=== PATIENT | male | born 1995 | race Caucasian/White ===

== ENCOUNTER 2022-10-27 09:49 | Outpatient (CLI) | payer OTHER, SELFPAY ==
--- NOTE | 2022-10-27 10:19 | XR_ITS ---
WS: [id number] Lumbar spine, 3 views, 10/27/2022 Clinical Data: BACK AND KNEE PAIN Comparison: None. Findings: No compression fractures or subluxation is seen. No disc space narrowing is seen. The transverse proc esses and SI joints are normal. XR/XR lumbar spine 2-3V* [id number] Impression: Negative lumbar spine.
--- NOTE | 2022-10-27 10:21 | XR_ITS ---
WS: [id number] Left knee, AP and lateral views, 10/27/2022 Clinical Data: BACK AND KNEE PAIN Comparison: None. Findings: No fractures or dislocations are seen. The joint spaces are normal. The patella is intact. The soft t issues are unremarkable. There is incidental sclerosis of the cortex in the medial proximal diaphysis of the left tibia. XR/XR knee LT 1-2V 11404 Impression: Negative left knee. Kellgren-Yuri Classification: grade 0 (none): definite absence of x-ray jina nges of osteoarthritis
== END 2022-10-27 09:50 | disposition home or self-care (01) ==
PROVIDERS: Visit Provider Dermatology
DX: Z02.71 Encounter for disability determination (principal)
CPT/HCPCS: 72100; 73560

== ENCOUNTER → 2023-01-13 09:00 | Outpatient (BNVA) | payer BC, MEDICAID, SELFPAY | PROVIDERS: Visit Provider Family Medicine Adult Medicine | DX: F32.A Depression, unspecified (principal); E05.00 Thyrotoxicosis with diffuse goiter without thyrotoxic crisis or storm; F31.9 Bipolar disorder, unspecified; G89.29 Other chronic pain; F20.0 Paranoid schizophrenia; F12.20 Cannabis dependence, uncomplicated; R44.0 Auditory hallucinations; R44.3 Hallucinations, unspecified; N39.41 Urge incontinence; F41.9 Anxiety disorder, unspecified; J45.909 Unspecified asthma, uncomplicated | CPT/HCPCS: 80053; 84443; 85025 ==

== ENCOUNTER → 2023-02-21 09:03 | Outpatient (BNVA) | payer BC, MEDICAID, SELFPAY | PROVIDERS: Visit Provider Family Medicine Adult Medicine | DX: E03.9 Hypothyroidism, unspecified (principal); R74.8 Abnormal levels of other serum enzymes; N17.9 Acute kidney failure, unspecified; F20.0 Paranoid schizophrenia; F31.9 Bipolar disorder, unspecified; F32.A Depression, unspecified; R60.0 Localized edema | CPT/HCPCS: 80053; 84443 ==

== ENCOUNTER → 2023-04-11 08:40 | Outpatient (BNVA) | payer BC, MEDICAID, SELFPAY | PROVIDERS: Visit Provider Family Medicine Adult Medicine | DX: E03.9 Hypothyroidism, unspecified (principal); N17.9 Acute kidney failure, unspecified; R74.8 Abnormal levels of other serum enzymes; F41.9 Anxiety disorder, unspecified; F32.A Depression, unspecified; K92.0 Hematemesis | CPT/HCPCS: 80053; 84443 ==

== ENCOUNTER 2023-06-16 21:34 | Emergency (ER) | payer BC, MEDICAID, SELFPAY ==
[2023-06-16 21:49] VITALS: BP 133/80; PULSE 78; RESP 16; TEMP 36.7; O2SAT 98
[2023-06-17] MEDS: tetanus-dipt-pertussis 0.5 mL SDV IM (00:14)
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
[2023-06-17] MEDS: lidocaine-prilocaine cream 5 gm 1 APPLIC TOPICAL (00:51)
[2023-06-17 00:53] VITALS: PULSE 77; RESP 14; O2SAT 98
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
[2023-06-17 02:21] VITALS: PULSE 78; RESP 16; O2SAT 99
== END 2023-06-17 02:27 | disposition home or self-care (01) ==
PROVIDERS: Emergency Provider Emergency Medicine; PCP Family Medicine Adult Medicine
DX: S06.0XAA Concussion with loss of consciousness status unknown, initial encounter (principal); S61.412A Laceration without foreign body of left hand, initial encounter; Z72.0 Tobacco use; Y04.2XXA Assault by strike against or bumped into by another person, initial encounter; Z23 Encounter for immunization
CPT/HCPCS: 12001; 70450; 73030; 90471; 90715; 99284

== ENCOUNTER → 2023-07-12 13:17 | Outpatient (BNVA) | payer BC, MEDICAID, SELFPAY | PROVIDERS: PCP Family Medicine Adult Medicine; Visit Provider Family Medicine Adult Medicine | DX: E03.9 Hypothyroidism, unspecified (principal); Z83.79 Family history of other diseases of the digestive system; B34.9 Viral infection, unspecified; F31.9 Bipolar disorder, unspecified; F41.9 Anxiety disorder, unspecified | CPT/HCPCS: 80048; 84443 ==

== ENCOUNTER 2023-08-16 07:41 | Day surgery (SDC) | payer BC, MEDICAID, SELFPAY ==
[2023-08-16 07:54] VITALS: BP 144/78; PULSE 70; RESP 18; TEMP 36.3; O2SAT 98; BMI 40.1
[2023-08-16] MEDS: sodium chloride 0.9% 1,000 ML 30 ML IV (08:08)
--- NOTE | 2023-08-16 08:11 | ANES.PREANE2 ---
Pre-Anesthetic Assessment Height/Weight: Height 1.68 m Weight 112.945 kg Temp Pulse Resp BP Pulse Ox O2 Del Method 97.4 F L 70 18 144/78 98 Room Air 08/16/23 07:54 08/16/23 07:54 08/16/23 07:54 08/16/23 07:54 08/16/23 07:54 08/16/23 07:54 Preop Diagnosis: diarrhea Operation Date: 08/16/23 08:30 Proposed Procedures p [id number] egd [id number] colon R11.2, R19.7 K92.1,K92.0, Z83.79,(Not Applicable) - Ramón Sutton DO s Colonoscopy(Not Applicable) - Ramón Sutton DO Was Beta Donato taken within 24 hours: N/A Was Clonidine taken within 24 hours: N/A Last intake: Intake Last Liquid Date 08/15/23 Last Liquid Time 23:00 Last Solid Date 08/14/23 Last Solid Time 23:55 Last Intake: 22:00 Social Tobacco and No alcohol Exam alert, oriented x 3, clear to auscultation bilaterally and regular rate & rhythm Airway Submandibular: within normal limits Cervical ROM: within normal limits Dentition: chipped Comments: Comments: poor dentition History/ROS No significant history except as noted Pulmonary Asthma CV/HEM None reported Chronic Renal Insufficiency Hepatic None reported GI None reported Metabolic Thyroid Disease [place] [facility] [place] None reported Neuropsych Depression Anesthetic Plan ASA status: 2 Anesthesia: MAC Risk of > 500 ml blood loss (7ml/kg in children): Yes, adequate IV access and fluids planned Medications/Allergies Home Medications Medication Instructions Recorded Confirmed Last Taken Type levothyroxine 300 mcg tablet 300 mcg PO DAILY low thyroid #90 04/12/23 08/14/23 08/15/23 Rx tabs docusate sodium 100 mg capsule 100 mg PO DAILY PRN Constipation 08/14/23 08/14/23 Unknown History (Dulcolax Stool Softener (docusate)) Allergies Allergy/AdvReac Type Severity Reaction Status Date / Time No Known Allergies Allergy Unverified 08/14/23 08:52 Current Medications Generic Name Dose Route Start Last Admin Trade Name Freq PRN Reason Stop Dose Admin Sodium Chloride 1,000 mls @ 30 mls/hr 08/16/23 07:45 08/16/23 08:08 Sodium Chloride 0.9% IV 08/17/23 07:44 30 mls/hr .Q24H ODIN Administration PFSH Anesthesia Medical History Viral syndrome FH: Crohn's disease TMJ (temporomandibular joint syndrome) Bilateral lower extremity edema Hypothyroidism Urge incontinence of urine Cannabis dependence Depression Anxiety Asthma Chronic pain bilateral knees, lateral SIJ's and low back pain Bipolar 1 disorder Paranoid schizophrenia Has a hallucinations visual and hearing voices Hallucination Family History Father No problems noted. Mother Lupus Acute Crohn's disease Acute pancreatitis Cancer Social History Smoking and tobacco/nicotine status: current some day tobacco/nicotine user Quit status (tobacco/nicotine): has tried quititng Second hand smoke exposure: No Alcohol intake: current Alcohol intake frequency: few times a month Alcohol type: other Substance/Drug Use: current Substance/Drug use frequency: daily Adopted: No Caregiver/support person: No Lives independently: Yes Household members: other Housing: Apartment Data Anesthesia Cardiac Studies: No Data to Display
--- NOTE | 2023-08-16 08:18 | PM.HP ---
Providers/Chief Complaint Primary Care Provider: Jozef Brown MD Chief Complaint: R11.2 History of Present Illness Shay Rubi is a 27 year old male Review of Systems General: Reports: 10 or more systems reviewed and unremarkable except in HPI and below Medications/Allergies Home Medications Medication Instructions Recorded Confirmed Last Taken Type levothyroxine 300 mcg tablet 300 mcg PO DAILY low thyroid #90 04/12/23 08/14/23 08/15/23 Rx tabs docusate sodium 100 mg capsule 100 mg PO DAILY PRN Constipation 08/14/23 08/14/23 Unknown History (Dulcolax Stool Softener (docusate)) Allergies Allergy/AdvReac Type Severity Reaction Status Date / Time No Known Allergies Allergy Unverified 08/14/23 08:52 PFSH Acute PFSH: Medical History Viral syndrome FH: Crohn's disease TMJ (temporomandibular joint syndrome) Bilateral lower extremity edema Hypothyroidism Urge incontinence of urine Cannabis dependence Depression Anxiety Asthma Chronic pain bilateral knees, lateral SIJ's and low back pain Bipolar 1 disorder Paranoid schizophrenia Has a hallucinations visual and hearing voices Hallucination Family History Father No problems noted. Mother Lupus Acute Crohn's disease Acute pancreatitis Cancer Social History Smoking and tobacco/nicotine status: current some day tobacco/nicotine user Quit status (tobacco/nicotine): has tried quititng Second hand smoke exposure: No Alcohol intake: current Alcohol intake frequency: few times a month Alcohol type: other Substance/Drug Use: current Substance/Drug use frequency: daily Adopted: No Caregiver/support person: No Lives independently: Yes Household members: other Housing: Apartment Vitals/I&O/Wt Last Vital Signs Temp 97.4 F L 08/16/23 07:54 Pulse 70 08/16/23 07:54 Resp 18 08/16/23 07:54 BP 144/78 08/16/23 07:54 Pulse Ox 98 08/16/23 07:54 O2 Del Method Room Air 08/16/23 07:54 Weight last 48 hrs Weight 249 lb A&P Assessment and plan (1) FH: Crohn's disease: (2) Nausea and vomiting: (3) Diarrhea: (4) Hematochezia: (5) GERD (gastroesophageal reflux disease): Plan EGD and colonoscopy Attestations Medical Necessity Statement*: Home Coding Level of Care Code Acute Code for Chg Fwd Diagnoses FH: Crohn's disease Z83.79 Nausea and vomiting R11.2 Diarrhea R19.7 Hematochezia K92.1 GERD (gastroesophageal reflux disease) K21.9
[2023-08-16 08:52] VITALS: BP 104/53; PULSE 59; RESP 18; TEMP 36.9; O2SAT 95
[2023-08-16 09:00] VITALS: BP 112/67; PULSE 59; RESP 18; O2SAT 96
--- NOTE | 2023-08-16 09:15 | ANE.PACU2 ---
Inpatient post-anesthesia follow up: Airway intact: Yes Vital signs: Temperature 98.4 F Pulse Rate 59 Respiratory Rate 18 Blood Pressure 112/67 Pulse Oximetry 96 Oxygen Delivery Me thod Room Air Oxygen Flow Rate Fraction of Inspir ed Oxygen Hydration adequate: Yes Nausea and vomiting: No Pain level: 1 Mental status: Baseline
[2023-08-16 11:19] LABS: C.Diff PCR (Lab) NEGATIVE (Negative)
== END 2023-08-16 09:19 | disposition home or self-care (01) ==
PROVIDERS: PCP Family Medicine Adult Medicine; Visit Provider Surgery
PROC: 0DJ08ZZ Inspection of Upper Intestinal Tract, Via Natural or Artificial Opening Endoscopic (ICD-10-PCS; CPT 43235; principal; 2023-08-16 08:30)
PROC: 0DJD8ZZ Inspection of Lower Intestinal Tract, Via Natural or Artificial Opening Endoscopic (ICD-10-PCS; CPT 45378; 2023-08-16 08:30)
DX: K92.1 Melena (principal); K92.0 Hematemesis; Z83.79 Family history of other diseases of the digestive system; R19.7 Diarrhea, unspecified; D12.5 Benign neoplasm of sigmoid colon; K29.80 Duodenitis without bleeding; J45.909 Unspecified asthma, uncomplicated; E66.9 Obesity, unspecified; Z68.41 Body mass index [BMI] 40.0-44.9, adult; E03.9 Hypothyroidism, unspecified; F17.200 Nicotine dependence, unspecified, uncomplicated
CPT/HCPCS: 43239; 45380; 45385; 82274; 83630; 87045; 87177; 87209; 87427; 87449; 87493; 88305; 88342; J2704; J3010; J3490; J7030

== ENCOUNTER 2023-08-31 12:29 | Emergency (ER) | payer BC, MEDICAID, SELFPAY ==
[2023-08-31 12:33] VITALS: BP 118/78; PULSE 73; RESP 16; TEMP 36.4; O2SAT 98; BMI 41.9
--- NOTE | 2023-08-31 12:33 | XR_ITS ---
WS: [id number] Portable AP upright chest, 08/31/2023 Clinical Data: cough Comparison: None. Findings: No nodules, masses or effusions are seen. The heart is normal. The pulmonary vascularity is not increased. No pneumonia or pneumothorax is seen. Impression: Negative chest.
--- NOTE | 2023-08-31 12:57 | ED_ITS ---
HPI - URI/Sore Throat General: Chief Complaint: Upper Respiratory Infection Stated Complaint: sob, cough, headache, mouth pain Time Seen by Provider: 08/31/23 12:56 History of Present Illness: Patient presents today with a 1 day episode of shortness of breath feeling of malaise. Patient appears nontoxic. Patient appears unwell. Patient appears in no pain. Respirations are even. Patient is able to speak in full sentences. Review of Systems General: Reports: 10 or more systems reviewed and unremarkable except in HPI and below Const: Reports: malaise Resp: Reports: dyspnea PFSH ED PFSH: Medical History Viral syndrome FH: Crohn's disease TMJ (temporomandibular joint syndrome) Bilateral lower extremity edema Hypothyroidism Urge incontinence of urine Cannabis dependence Depression Anxiety Asthma Chronic pain bilateral knees, lateral SIJ's and low back pain Bipolar 1 disorder Paranoid schizophrenia Has a hallucinations visual and hearing voices Hallucination Family History Father No problems noted. Mother Lupus Acute Crohn's disease Acute pancreatitis Cancer Social History Smoking and tobacco/nicotine status: current some day tobacco/nicotine user Quit status (tobacco/nicotine): has tried quititng Second hand smoke exposure: No Alcohol intake: current Alcohol intake frequency: few times a month Alcohol type: other Substance/Drug Use: current Substance/Drug use frequency: daily Adopted: No Caregiver/support person: No Lives independently: Yes Household members: other Housing: Apartment Physical Exam Const: COMMON NORMALS: alert HENMT: COMMON NORMALS: normocephalic HEAD & SCALP: normocephalic Resp: COMMON NORMALS: normal respiratory effort AUSCULTATION: wheezes Cardio: COMMON NORMALS: regular rate RATE: regular rate Back/Pelvis: COMMON NORMALS: thoracic and lumbar spine normal to inspection Extremity: COMMON NORMALS: full ROM Neuro: SENSORIUM/ORIENTATION: Yes alert Skin: COMMON NORMALS: turgor normal GENERAL SKIN EXAM: turgor normal Course Vital Signs: Vital signs: Vital Signs Temperature 97.5 F L 08/31/23 12:33 Pulse Rate 76 08/31/23 13:25 Respiratory Rate 22 H 08/31/23 13:25 Blood Pressure 118/78 08/31/23 12:33 Pulse Oximetry 96 08/31/23 13:25 Oxygen Delivery Me thod Room Air 08/31/23 13:25 MDM - URI/Sore Throat Medical Decision Making 27-year-old male patient comes in today for complaints of cough and shortness of breath. Patient appears nontoxic. Lungs have wheezing throughout lung salgado. Skin is warm and dry. No edema is. Abdomen soft and nontender. Differential diagnosis includes but not limited to pneumonia, bronchitis, asthma, viral syndrome. Patient was negative for flu and COVID. Will treat for bronchitis with asthma component. Patient was written a prescription for doxycycline and prednisone. Patient was also given a prescription for albuterol. Recommend follow-up with primary care in 3 to 5 days for recheck. Encourage smoking cessation. Lab Data Laboratory Results Influenza Type A Ag negative (Negative) 08/31/23 12:48 Influenza Type B Ag negative (Negative) 08/31/23 12:48 SARS-CoV-2 Ag (Rapid) negative (Negative) 08/31/23 12:48 All radiology interpretation(s) finalized by discharge Discharge Plan Discharge Patient Disposition: Home Clinical Impression: Acute bronchitis with asthma Condition: Stable Prescriptions: New doxycycline hyclate 100 mg tablet 100 mg PO BID 7 Days Qty: 14 0RF prednisone 20 mg tablet 20 mg PO DAILY 5 Days Qty: 5 0RF albuterol sulfate 90 mcg/actuation HFA aerosol inhaler 2 inh inhalation Q4H PRN (Reason: shortness of breath or wheezing) Qty: 8.5 0RF No Action levothyroxine 300 mcg tablet 300 mcg PO DAILY Qty: 90 5RF docusate sodium [Dulcolax Stool Softener (dss)] 100 mg capsule 100 mg PO DAILY PRN (Reason: Constipation) Rx Instructions: take as directed for colonoscopy prep pantoprazole 40 mg tablet,delayed release (DR/EC) 40 mg PO BID 42 Days Qty: 84 1RF Discharge Orders: Discharge ED (Routine); Ordered 08/31/23 Ordered By: Natanael Diaz Referrals: Jozef Brown MD [Primary Care Provider] - Discharge Diet: Usual diet Discharge Activity: Increase activity as tolerated Patient Instructions: Acute Bronchitis (ED) Activity Restrictions/Additional Instructions: Drink plenty of water and fluids. I recommend cessation of smoking and vaping as this may aggravate bronchitis and asthma symptoms. Take antibiotic and steroid as directed. Follow-up with primary care in 3 to 5 days for recheck. Return to ED for new concerns. Coding Level of Care Code ED Playground Attendant for Janina Nunez
[2023-08-31] MEDS: dexamethasone 10 mg/mL INJ IM (13:11)
[2023-08-31 13:17] LABS: Influenza A by IFA negative (Negative); Influenza B by IFA negative (Negative)
[2023-08-31 13:19] LABS: SARS Covid-2 Antigen negative (Negative)
[2023-08-31] MEDS: ipratropium-albuterol 3 mL Neb INHALATION (13:24)
[2023-08-31 13:25] VITALS: PULSE 76; RESP 22; O2SAT 96
[2023-08-31] MEDS: doxycycline 100 mg Tablet PO (13:39)
[2023-08-31 13:47] VITALS: BP 138/77; PULSE 65; O2SAT 97
== END 2023-08-31 13:48 | disposition home or self-care (01) ==
PROVIDERS: Emergency Medicine; Emergency Provider Nurse Practitioner Family; PCP Family Medicine Adult Medicine
DX: J45.909 Unspecified asthma, uncomplicated (principal); J20.9 Acute bronchitis, unspecified; Z11.52 Encounter for screening for COVID-19; Z72.0 Tobacco use
CPT/HCPCS: 71045; 87426; 87804; 94640; 96372; 99284; J1100

== ENCOUNTER 2023-09-08 08:06 | Outpatient (CLI) | payer BC, MEDICAID, SELFPAY ==
--- NOTE | 2023-09-08 08:30 | US_ITS ---
WS: [id number] RIGHT UPPER QUADRANT ULTRASOUND HISTORY: abdominal pain COMPARISON: None available. Liver: 21.2 cm in length. Moderate hepatomegaly. No mass. No bile duct dilatation. Portal Vein: Normal hepatopetal flow with monophasic waveform. Gallbladder: Normally distended with cholelithiasis. Small stones in the dependent gallbladder. CBD: 0.3 cm Pancreas: Poorly visualized. Right kidney: 8.8 cm in length. Mild atrophy of the RIGHT kidney. Aorta and IVC: Unremarkable abdominal aorta and IVC. No ascites. IMPRESSION: 1. Lithiasis without acute cholecystitis. 2. Moderate hepatomegaly. 3. Mild atrophy RIGHT kidney. No obstruction.
== END 2023-09-08 08:07 | disposition home or self-care (01) ==
LOC: RAD 08:06
PROVIDERS: PCP Family Medicine Adult Medicine; Visit Provider Surgery
DX: R10.9 Unspecified abdominal pain (principal); K80.20 Calculus of gallbladder without cholecystitis without obstruction; R16.0 Hepatomegaly, not elsewhere classified; N26.1 Atrophy of kidney (terminal)
CPT/HCPCS: 76705

== ENCOUNTER 2023-10-27 02:40 | Emergency (ER) | payer BC, MEDICAID, SELFPAY ==
[2023-10-27 02:42] VITALS: BP 142/92; PULSE 74; RESP 18; TEMP 36.4; O2SAT 95; BMI 37.9
--- NOTE | 2023-10-27 02:47 | W.ED.BACK ---
HPI - Back Pain/Injury General: Chief Complaint: Back Pain/Injury Stated Complaint: Back Pain Time Seen by Provider: 10/27/23 02:42 History of Present Illness: Presents to the ER with complaints of right-sided low back pain that began in mid July. Patient says also felt a lump in this area that is tender to palpate. He noticed a lump within the last couple weeks. Patient took some Tylenol before he came here tonight. Patient arrived by EMS. Patient is in no acute distress and is not toxic in appearance. Patient has no history of chronic back problems per him. Patient denies any nausea vomiting diarrhea constipation fevers chills urinary symptoms Review of Systems General: Reports: 10 or more systems reviewed and unremarkable except in HPI and below PFSH ED PFSH: Medical History FH: Crohn's disease TMJ (temporomandibular joint syndrome) Bilateral lower extremity edema Hypothyroidism Urge incontinence of urine Cannabis dependence Depression Anxiety Asthma Chronic pain bilateral knees, lateral SIJ's and low back pain Bipolar 1 disorder Paranoid schizophrenia Has a hallucinations visual and hearing voices Hallucination Family History Father No problems noted. Mother Lupus Acute Crohn's disease Acute pancreatitis Cancer Social History Smoking and tobacco/nicotine status: current some day tobacco/nicotine user Quit status (tobacco/nicotine): has tried quititng Second hand smoke exposure: No Alcohol intake: current Alcohol intake frequency: few times a month Alcohol type: other Substance/Drug Use: current Substance/Drug use frequency: daily Adopted: No Caregiver/support person: No Lives independently: Yes Household members: other Housing: Apartment Physical Exam Const: COMMON NORMALS: no acute distress, average body habitus, patient oriented x3, no limitations, healthy appearing, alert and well nourished HENMT: COMMON NORMALS: normocephalic, atraumatic, hearing grossly normal bilaterally, external ears normal, Normal external nose present and moist oral mucous membranes HEAD & SCALP: normocephalic and atraumatic NOSE: Normal external nose present EXTERNAL EAR: Yes external ears normal Neck/C-Spine: COMMON NORMALS: no JVD Chest: COMMONS NORMALS: normal inspection of the chest and normal palpation of entire chest wall Resp: COMMON NORMALS: normal respiratory effort, No retractions, No use of accessory muscles and clear to auscultation bilaterally AUSCULTATION: clear to auscultation bilaterally Cardio: COMMON NORMALS: no JVD, regular rate, regular rhythm, S1 normal heart sound present, S2 normal heart sound present, No gallops present (Cardio), No clicks present (Cardio), No murmurs present (Cardio) and No rub (Cardio) RATE: regular rate RHYTHM: regular rhythm HEART SOUNDS: S1 normal heart sound present and S2 normal heart sound present GI: COMMON NORMALS: Normal to inspection, nondistended, normoactive bowel sounds present, Soft to palpation, non-tender, No hepatosplenomegaly present and no masses PALPATION: Yes Soft to palpation and Yes No hepatosplenomegaly present Back/Pelvis: OTHER: Tender to palpate over right paraspinal musculature, nontender to palpate over spinous processes. No obvious crepitus deformity Neuro: COMMON NORMALS: patient oriented x3 SENSORIUM/ORIENTATION: Yes alert Course Vital Signs: Vital signs: Vital Signs Temperature 97.6 F 10/27/23 02:42 Pulse Rate 74 10/27/23 02:42 Respiratory Rate 18 10/27/23 02:42 Blood Pressure 142/92 10/27/23 02:42 Pulse Oximetry 95 10/27/23 02:42 Oxygen Delivery Me thod Room Air 10/27/23 02:42 MDM - Back Pain/Injury Medical Decision Making Patient was given an IM shot of Toradol 60 mg Norflex 60 mg and will be referred back to his family physician for further evaluation and treatment. Differential Diagnosis Unlikely lumbar radiculopathy, sciatica, strain of lumbar region, renal colic, pyelonephritis, thoracic back pain, AAA or discitis Medical Records I reviewed the patient's medical records. Labs I reviewed the patient's lab results. No radiology studies performed this visit Discharge Plan Discharge Patient Disposition: Home Clinical Impression: Low back pain Qualifiers: Chronicity: chronic Back pain laterality: right Sciatica presence: without sciatica Qualified Code(s): M54.50 - Low back pain, unspecified Condition: Stable Prescriptions: No Action levothyroxine 300 mcg tablet 300 mcg PO DAILY Qty: 90 5RF docusate sodium [Dulcolax Stool Softener (dss)] 100 mg capsule 100 mg PO DAILY PRN (Reason: Constipation) Rx Instructions: take as directed for colonoscopy prep pantoprazole 40 mg tablet,delayed release (DR/EC) 40 mg PO BID 42 Days Qty: 84 1RF albuterol sulfate 90 mcg/actuation HFA aerosol inhaler 2 inh inhalation Q4H PRN (Reason: shortness of breath or wheezing) Qty: 8.5 0RF Discharge Orders: Discharge ED (Routine); Ordered 10/27/23 Ordered By: Jake Matt Referrals: Jozef Brown MD [Primary Care Provider] - 1 week Patient Instructions: Back Pain (ED) Activity Restrictions/Additional Instructions: You are given a pain medicine muscle relaxer here in the ER. Please follow-up with your family practice physician within the next 7 to 10 days for reevaluation of your chronic back pain. The lump you feel in your right side may be a localized muscle spasm or may be a lipoma. Your family practice physician can help differentiate these 2. Coding Level of Care Code ED Artisan Plasterer for Janina Nunez
[2023-10-27] MEDS: orphenadrine 30 mg/mL Inj 2 mL 60 MG IM (03:00)
[2023-10-27] MEDS: ketorolac 60 mg/2 mL INJ IM (03:00)
[2023-10-27 03:06] VITALS: RESP 14; O2SAT 99
== END 2023-10-27 03:15 | disposition home or self-care (01) ==
PROVIDERS: Emergency Provider Emergency Medicine; PCP Family Medicine Adult Medicine
DX: M54.50 Low back pain, unspecified (principal); Z72.0 Tobacco use
CPT/HCPCS: 96372; 99284; J1885; J2360

== ENCOUNTER → 2023-11-07 11:59 | Outpatient (BNVA) | payer BC, MEDICAID, SELFPAY | PROVIDERS: PCP Family Medicine Adult Medicine; Visit Provider Family Medicine Adult Medicine | DX: E03.9 Hypothyroidism, unspecified (principal); R22.2 Localized swelling, mass and lump, trunk | CPT/HCPCS: 84443 ==

== ENCOUNTER 2023-11-16 09:38 | Emergency (ER) | payer BC, MEDICAID, SELFPAY ==
[2023-11-16 10:02] VITALS: BP 109/75; PULSE 61; RESP 17; TEMP 36.6; O2SAT 95; BMI 41.9
--- NOTE | 2023-11-16 10:08 | XR_ITS ---
WS: [id number] Portable AP upright chest, 11/16/2023 Clinical Data: cough Comparison: Portable chest, 08/31/2023 Findings: No nodules, masses or effusions are seen. The heart is normal. The pulmonary vascularity is not increased. No pneumonia or pneumothorax is seen. XR/XR chest 1V portable [id number] Impression: Negative chest.
== END 2023-11-16 11:38 | disposition left against medical advice (07) ==
PROVIDERS: Emergency Provider Family Medicine; PCP Family Medicine Adult Medicine
DX: Z53.21 Procedure and treatment not carried out due to patient leaving prior to being seen by health care provider (principal)
CPT/HCPCS: 71045

== ENCOUNTER 2023-11-21 04:19 | Emergency (ER) | payer BC, MEDICAID, SELFPAY ==
[2023-11-21 04:22] VITALS: BP 142/83; PULSE 51; RESP 20; TEMP 36.9; O2SAT 96; BMI 48.4
--- NOTE | 2023-11-21 04:23 | ED_ITS ---
HPI - Nausea/Vomiting/Diarrhea 2 General: Chief complaint: Nausea/Vomiting/Diarrhea Stated complaint: VOMITING Time Seen by Provider: 11/21/23 04:19 Source: patient and EMS Mode of arrival: EMS Limitations: no limitations History of Present Illness: 28-year-old male who states that he has been having nausea vomiting along with diarrhea over the last 24 hours. He states he had multiple episodes not able to tolerate anything p.o. He has had a long history of GI issues does follow with Dr. Sutton. He denies any worsening improving factors has had some abdominal cramping. Associated nausea: Yes Associated symtoms: Reports nausea; Denies chest pain, dysuria or headache(s) Review of Systems 2 Const: Denies: fever(s), chills, body aches or change in appetite ENMT: Denies: throat pain or dental pain Card: Denies: chest pain Resp: Denies: dyspnea GI: Reports: nausea and vomiting; Denies: abdominal pain or diarrhea : Denies: dysuria Musc: Denies: neck pain or back pain Skin/Breast: Denies: rash Neuro: Denies: headache(s) PFSH ED 2 PFSH: Medical History Subcutaneous mass of back FH: Crohn's disease TMJ (temporomandibular joint syndrome) Bilateral lower extremity edema Hypothyroidism Urge incontinence of urine Cannabis dependence Depression Anxiety Asthma Chronic pain bilateral knees, lateral SIJ's and low back pain Bipolar 1 disorder Paranoid schizophrenia Has a hallucinations visual and hearing voices Hallucination Family History Father No problems noted. Mother Lupus Acute Crohn's disease Acute pancreatitis Cancer Social History Smoking and tobacco/nicotine status: current some day tobacco/nicotine user Quit status (tobacco/nicotine): has tried quititng Second hand smoke exposure: No Alcohol intake: current Alcohol intake frequency: few times a month Alcohol type: other Substance/Drug Use: current Substance/Drug use frequency: daily Adopted: No Caregiver/support person: No Lives independently: Yes Household members: other Housing: Apartment Physical Exam 2 Const: COMMON NORMALS: no acute distress, patient oriented x3 and healthy appearing HENMT: COMMON NORMALS: normocephalic and atraumatic HEAD & SCALP: n ormocephalic and atraumatic Eye: COMMON NORMALS: negative for conjunctivae normal CONJUNCTIVA: No conjunctivae normal Neck/C-Spine: COMMON NORMALS: full ROM and supple Chest: COMMONS NORMALS: normal inspection of the chest Resp: COMMON NORMALS: normal respiratory effort, No retractions, No use of accessory muscles and clear to auscultation bilaterally AUSCULTATION: clear to auscultation bilaterally Cardio: COMMON NORMALS: regular rate, regular rhythm and No murmurs present (Cardio) RATE: regular rate RHYTHM: regular rhythm GI: COMMON NORMALS: Normal to inspection, nondistended, normoactive bowel sounds present, Soft to palpation, non-tender and no masses PALPATION: Yes Soft to palpation Extremity: COMMON NORMALS: normal to inspection and full ROM Neuro: COMMON NORMALS: patient oriented x3, moves all extremities and no focal motor deficits Psych: COMMON NORMALS: mental status grossly normal, Normal thought process present and cooperative THOUGHT PROCESS: Normal thought process present Skin: COMMON NORMALS: no rashes or lesions noted and no wounds GENERAL SKIN EXAM: no rashes or lesions noted Course 2 Vital Signs: Vital signs: Vital Signs Temperature 98.4 F 11/21/23 04:22 Pulse Rate 51 L 11/21/23 06:00 Respiratory Rate 20 H 11/21/23 04:22 Blood Pressure 130/74 11/21/23 06:00 Pulse Oximetry 96 11/21/23 06:00 Oxygen Delivery Me thod Room Air 11/21/23 05:30 MDM - Nausea/Vomiting/Diarrhea Medical Decision Making Patient presents with nausea and vomiting is likely viral gastroenteritis he feels much improved after meds and fluids. Blood work here is normal exam is benign no signs of acute surgical abdomen Medical Records I reviewed the patient's medical records. Lab Data I reviewed the patient's lab results. 11/21/23 04:41 11/21/23 04:41 Laboratory Results WBC 6.68 10^3/uL (3.29-11.43) 11/21/23 04:41 RBC 5.28 10^6/uL (3.85-5.65) 11/21/23 04:41 Hgb 15.90 g/dL (11.27-16.99) 11/21/23 04:41 Hct 47.6 % (37-53) 11/21/23 04:41 MCV 90.2 fl (82-101) 11/21/23 04:41 MCH 30.1 pg (27-33) 11/21/23 04:41 MCHC 33.4 g/dL (30-55) 11/21/23 04:41 RDW 12.1 % (12.1-15.1) 11/21/23 04:41 Plt Count 224 10^3/cmm (157-399) 11/21/23 04:41 MPV 10.8 fL (7.4-10.4) H 11/21/23 04:41 Neut % (Auto) 74.8 % 11/21/23 04:41 Lymph % (Auto) 15.9 % 11/21/23 04:41 [place] % (Auto) 7.5 % 11/21/23 04:41 Eos % (Auto) 0.7 % 11/21/23 04:41 Baso % (Auto) 0.4 % 11/21/23 04:41 Neut # (Auto) 4.99 10^3/uL (1.8-7.7) 11/21/23 04:41 Lymph # (Auto) 1.1 10^3/uL (0.8-4.8) 11/21/23 04:41 [place] # (Auto) 0.5 10^3/uL (0.2-0.9) 11/21/23 04:41 Eos # (Auto) 0.1 10^3/uL (0.0-0.8) 11/21/23 04:41 Baso # (Auto) 0.0 10^3/uL (0.0-0.1) 11/21/23 04:41 Nucleated RBC % (auto) 0 % 11/21/23 04:41 Nucleated RBCs # 0.0 /100WBC 11/21/23 04:41 Sodium 138 mmol/L (136-145) 11/21/23 04:41 Potassium 3.6 mmol/L (3.5-5.1) 11/21/23 04:41 Chloride 102 mmol/L (98-107) 11/21/23 04:41 Carbon Dioxide 24 mmol/L (22-29) 11/21/23 04:41 Anion Gap 15.6 (5-19) 11/21/23 04:41 BUN 10 mg/dL (6-20) 11/21/23 04:41 Creatinine 0.8 mg/dL (0.7-1.2) 11/21/23 04:41 GFR Calculation 114.3 mL/min (90-130) 11/21/23 04:41 Glucose 100 mg/dL (65-115) 11/21/23 04:41 Calculated Osmolality 285 mOsm/kg (285-295) 11/21/23 04:41 Calcium 8.5 mg/dL (8.5-10.5) 11/21/23 04:41 Total Bilirubin 0.8 mg/dL (0.15-1.2) 11/21/23 04:41 AST 17 U/L (0-40) 11/21/23 04:41 ALT 20 U/L (0-41) 11/21/23 04:41 Alkaline Phosphatase 58 U/L (40-130) 11/21/23 04:41 Total Protein 6.9 g/dL (6.6-8.7) 11/21/23 04:41 Albumin 4.1 g/dL (3.5-5.2) 11/21/23 04:41 Globulin 2.8 g/dL (1.3-4.6) 11/21/23 04:41 Lipase 15 U/L (13-60) 11/21/23 04:41 No radiology studies performed this visit Discharge Plan Discharge Patient Disposition: Home Clinical Impression: Vomiting Condition: Stable Prescriptions: New ondansetron 4 mg tablet,disintegrating 4 mg PO Q6H PRN (Reason: nausea and vomiting) Qty: 14 0RF No Action diclofenac sodium 75 mg tablet,delayed release (DR/EC) 75 mg PO Q12H PRN (Reason: pain) Qty: 30 1RF albuterol sulfate [Ventolin HFA] 90 mcg/actuation HFA aerosol inhaler 2 puff inhalation Q6H PRN (Reason: shortness of breath or wheezing) Qty: 8.5 0RF prednisone 20 mg tablet 20 mg PO BID 5 Days Qty: 10 0RF amoxicillin-pot clavulanate 875-125 mg tablet 1 tab PO BID 7 Days Qty: 14 0RF levothyroxine 300 mcg tablet 300 mcg PO DAILY Qty: 90 5RF docusate sodium [Dulcolax Stool Softener (dss)] 100 mg capsule 100 mg PO DAILY PRN (Reason: Constipation) Rx Instructions: take as directed for colonoscopy prep pantoprazole 40 mg tablet,delayed release (DR/EC) 40 mg PO BID 42 Days Qty: 84 1RF albuterol sulfate 90 mcg/actuation HFA aerosol inhaler 2 inh inhalation Q4H PRN (Reason: shortness of breath or wheezing) Qty: 8.5 0RF Discharge Orders: Discharge ED (Routine); Ordered 11/21/23 Ordered By: Fariha Fernandez Referrals: Jozef Brown MD [Primary Care Provider] - Discharge Diet: Advance as tolerated Discharge Activity: Resume usual activity Patient Instructions: Acute Nausea and Vomiting (ED) Coding Level of Care Code ED Reliability Engineer for Janina Nunez
[2023-11-21] MEDS: sodium chloride 0.9% 1,000 ML 999 ML IV (04:44)
[2023-11-21] MEDS: diphenhydrAMINE 50 mg/mL SDV 1mL IVP (04:45)
[2023-11-21 04:47] LABS: Basophils % 0.4 %; Eosinophils # 0.1 10^3/uL (0.0-0.8); Eosinophils % 0.7 %; Hematocrit 47.6 % (37-53); Lymphocytes # 1.1 10^3/uL (0.8-4.8); Lymphocytes % 15.9 %; Mean Corpuscular HGB Conc 33.4 g/dL (30-55); Mean Corpuscular Hemoglobin 30.1 pg (27-33); Mean Corpuscular Volume 90.2 fl (82-101); Mean Platelet Volume 10.8 fL (7.4-10.4); Monocytes # 0.5 10^3/uL (0.2-0.9); Monocytes % 7.5 %; Neutrophils # 4.99 10^3/uL (1.8-7.7); Neutrophils % 74.8 %; Nucleated Red Blood Cells % 0 %; Platelet Count 224 10^3/cmm (157-399); Red Blood Count 5.28 10^6/uL (3.85-5.65); Red Cell Distribution Width 12.1 % (12.1-15.1); White Blood Count 6.68 10^3/uL (3.29-11.43)
[2023-11-21] MEDS: metoclopramide 5 mg/mL SDV 2 mL 10 MG IVP (04:51)
[2023-11-21 05:00] VITALS: BP 123/61; PULSE 53; O2SAT 95
[2023-11-21 05:05] LABS: Alanine Aminotransferase 20 U/L (0-41); Albumin Level 4.1 g/dL (3.5-5.2); Alkaline Phosphatase 58 U/L (40-130); Anion Gap 15.6 (5-19); Aspartate Amino Transferase 17 U/L (0-40); Blood Urea Nitrogen 10 mg/dL (6-20); Calcium 8.5 mg/dL (8.5-10.5); Carbon Dioxide 24 mmol/L (22-29); Chloride 102 mmol/L (98-107); Creatinine Clr Calc Pharmacy 178.6622; Globulin 2.8 g/dL (1.3-4.6); Glomerular Filtration Rate 114.3 mL/min (90-130); Glucose 100 mg/dL (65-115); Lipase 15 U/L (13-60); Osmolality Calculated 285 mOsm/kg (285-295); Potassium 3.6 mmol/L (3.5-5.1); Sodium 138 mmol/L (136-145); Total Bilirubin 0.8 mg/dL (0.15-1.2); Total Protein 6.9 g/dL (6.6-8.7)
[2023-11-21 05:30] VITALS: BP 133/75; PULSE 44; O2SAT 96
[2023-11-21 06:00] VITALS: BP 130/74; PULSE 51; O2SAT 96
== END 2023-11-21 06:00 | disposition home or self-care (01) ==
PROVIDERS: Emergency Provider Emergency Medicine; PCP Family Medicine Adult Medicine
DX: R11.11 Vomiting without nausea (principal); Z72.0 Tobacco use
CPT/HCPCS: 80053; 83690; 85025; 96374; 96375; 99284; J1200; J2765; J7030

== ENCOUNTER 2023-12-12 07:15 | Day surgery (SDC) | payer BC, MEDICAID, SELFPAY ==
[2023-12-12] VITALS (15 sets, daily range): BP systolic 118–176; BP diastolic 66–120; PULSE 51–92; RESP 13–20; TEMP 36.1–37; O2SAT 90–100; BMI 38.7
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
[2023-12-12] MEDS: sodium chloride 0.9% 1,000 ML 30 ML IV (08:12)
--- NOTE | 2023-12-12 08:14 | W.PM.OPSUD ---
Surgery/Procedure H&P Update DATE OF PROCEDURE: December 12, 2023 DATE H&P PERFORMED: 11/24/23 H&P UPDATE INFORMATION: I have reviewed H&P completed within last 30 days, I have examined patient prior to procedure and No changes to prior documentation PLANNED PROCEDURE: Operation Date: 12/12/23 09:00 Proposed Procedures p Laparoscopic Cholecystectomy(Not Applicable) - Ramón Sutton DO s Excision of Subcutaneous Mass/Lesion/Cyst Upper Torso/He 01781, 17931, R22.2, K80.20(Not Applicable) - Ramón Sutton DO
[2023-12-12] MEDS: albuterol 2.5 mg/3 mL Neb INHALATION (08:30)
--- NOTE | 2023-12-12 08:59 | SUR.PREOP ---
TOLERATED BREATHING TREATMENT WELL.NO DYSPNEA AT THIS TIME.
[2023-12-12] MEDS: ceFAZolin 2,000 MG in sodium chloride 0.9% (plus) 50 ML 100 MG IV (09:31)
--- NOTE | 2023-12-12 11:02 | P.OP_ITS ---
Operative Report Date of procedure: December 12, 2023 Pre-op diagnosis: Symptomatic cholelithiasis Subcutaneous mass Post-op diagnosis: Symptomatic cholelithiasis Subfascial mass Procedure done: Laparoscopic cholecystectomy Excision of subfascial mass 6 cm x 4 cm x 2.5 cm Implants: None Specimens removed/disposition: Gallbladder Subfascial mass 6 cm x 4 cm x 2.5 cm Surgeon: Ramón Sutton DO Brief History: This is a very pleasant 28-year-old gentleman who presented my office with symptomatic cholelithiasis. Laparoscopic cholecystectomy was indicated. The risk and benefits were explai yokasta and documented. He also had a painful subcutaneous mass on his right lower back that he desired excised. The risks and benefits were explained and documented Procedure: Complications: None apparent Description of procedure: Patient was wheeled into the operative room and placed on the OR table in a supine position. Abdomen was inspected prepped and draped in usual sterile fashion. Time-out was performed and all present were in agreement. A 15 blade scalp was used to make a stab incision in the left upper quadrant and intra- abdominal insufflation was achieved using a Veress needle. After localizing the tissue incisions were made and a 5 millimeter trocar was placed into the umbilicus as well as 2 in the right upper quadrant. A 12 millimeter trocar was placed in the epigastrium. Gallbladder was grasped and elevated. The triangle of Calot was carefully dissected using blunt dissection and electrocautery until the triangle of Calot clearly identified. The cystic duct was clipped proximally and double clipped distally. The duct was then ligated proximally. The cystic artery was doubly clipped and ligated. The gallbladder was then removed from the liver bed using electrocautery. The gallbladder was removed from the abdomen using an Endo-Catch bag through the epigastric incision. The liver bed was inspected and no bleeding was seen. The abdomen was irrigated and suctioned. All ports removed. Skin was washed and dried. Incisions were closed with 4-0 Monocryl in a subcuticular interrupted fashion. Skin glue was applied. Patient tolerated the procedure well. Patient was then put into the prone position. The right lower back was prepped and draped in usual sterile fashion. A 5 cm transverse incision was made over the subcutaneous mass. Dissection was carried down through the dermis and then through the subcutaneous tissue. The mass was discovered to be underneath the fascial layer overlying the lumbar muscles. The fascia was split open using electrocautery. Just under the fascia, a fatty tumor measuring 6 x 4 by 2.5 cm was identified. This was removed bluntly and with electrocautery. Hemostasis was noted. Dermis was approximated with 3-0 Vicryl in an interrupted fashion. Skin was closed with 2-0 and 3-0 nylon in a simple interrupted fashion. Sterile bandages applied. Patient tolerated procedure well.
[2023-12-12] MEDS: ketorolac 30 mg/mL INJ IVP (11:48)
[2023-12-12] MEDS: ondansetron 2 mg/ML SDV 2 mL 4 MG IVP (11:49)
[2023-12-12] MEDS: labetalol 5 mg/mL SDV 20mL 10 MG IVP (12:08)
[2023-12-12] MEDS: hyDRALAzine 20 mg/mL INJ 1 mL 5 MG IVP (12:19)
--- NOTE | 2023-12-12 12:21 | SUR.OPER ---
Consulted Dr Trimble for increased blood pressure, given a verbal order for 10mg of labetalol, medication given and blood pressure remained elevated. Given verbal order for Hydralazine 5mg by Dr Trimble.
[2023-12-12] MEDS: fentaNYL 50 mcg/mL INJ 2mL IVP (12:29)
--- NOTE | 2023-12-12 13:30 | ANE.PACU2 ---
Inpatient post-anesthesia follow up: Airway intact: Yes Vital signs: Temperature 97.6 F Pulse Rate 92 Respiratory Rate 18 Blood Pressure 124/79 Pulse Oximetry 97 Oxygen Delivery Me thod Room Air Oxygen Flow Rate Fraction of Inspir ed Oxygen Hydration adequate: Yes Nausea and vomiting: No Pain level: 1 Mental status: Baseline
--- NOTE | 2023-12-12 13:34 | SUR.PHASEII ---
13:30 SURGICAL INCISIONS CLEAN AND DRY,NO REDNESS OR DRAINAGE.
== END 2023-12-12 13:30 | disposition home or self-care (01) ==
PROVIDERS: PCP Family Medicine Adult Medicine; Visit Provider Surgery
PROC: 0FT44ZZ Resection of Gallbladder, Percutaneous Endoscopic Approach (ICD-10-PCS; CPT 47562; principal; 2023-12-12 09:00)
PROC: (CPT 11406; 2023-12-12 09:00)
DX: K80.10 Calculus of gallbladder with chronic cholecystitis without obstruction (principal); D17.1 Benign lipomatous neoplasm of skin and subcutaneous tissue of trunk; J45.909 Unspecified asthma, uncomplicated; K21.9 Gastro-esophageal reflux disease without esophagitis; E66.01 Morbid (severe) obesity due to excess calories; Z68.38 Body mass index [BMI] 38.0-38.9, adult; E03.9 Hypothyroidism, unspecified; F32.A Depression, unspecified; F17.200 Nicotine dependence, unspecified, uncomplicated
CPT/HCPCS: 11406; 12032; 47562; 88304; 88307; J0330; J0360; J0690; J1100; J1170; J1885; J2250; J2310; J2405; J2704; J2710; J3010; J3490; J7030; J7613

== ENCOUNTER 2023-12-28 08:54 | Emergency (ER) | payer BC, MEDICAID, SELFPAY ==
[2023-12-28 08:58] VITALS: PULSE 108; RESP 18; TEMP 37.1; O2SAT 98
--- NOTE | 2023-12-28 09:03 | ED_ITS ---
HPI - General Adult General: Chief complaint: General Medical Stated complaint: had a tumor in the back taken out, stitches popped Time Seen by Provider: 12/28/23 08:55 Source: patient Mode of arrival: ambulatory History of Present Illness: 28-year-old male had a lipoma removed fr om his low back. Has drainage in that area. Reviewing the chart it is a lipoma that was removed on 618. Patient has some serosanguineous drainage on the wound. No purulent drainage no fever at home. In the same setting and his gallbladder removed he said no problems with that. He has a upcoming appointment next week with Dr. Sutton. [facility] ED PFS: Medical History Subcutaneous mass of back FH: Crohn's disease TMJ (temporomandibular joint syndrome) Bilateral lower extremity edema Hypothyroidism Urge incontinence of urine Cannabis dependence Depression Anxiety Asthma Chronic pain bilateral knees, lateral SIJ's and low back pain Bipolar 1 disorder Paranoid schizophrenia Has a hallucinations visual and hearing voices Hallucination Family History Father No problems noted. Mother Lupus Acute Crohn's disease Acute pancreatitis Cancer Social History Smoking and tobacco/nicotine status: current some day tobacco/nicotine user Quit status (tobacco/nicotine): has tried quititng Second hand smoke exposure: No Alcohol intake: current Alcohol intake frequency: few times a month Alcohol type: other Substance/Drug Use: current Substance/Drug use frequency: daily Adopted: No Caregiver/support person: No Lives independently: Yes Household members: other Housing: Apartment Physical Exam Narrative: EXAM NARRATIVE: Examination of the back there is some mild redness at the edge of the incision line there is serosanguineous drainage from the wound no purulent drainage no induration. No dehiscence of the wound. Course Vital Signs: Vital signs: Vital Signs Temperature 98.7 F 12/28/23 08:58 Pulse Rate 108 H 12/28/23 08:58 Respiratory Rate 18 12/28/23 08:58 Blood Pressure 147/78 12/28/23 09:10 Pulse Oximetry 98 12/28/23 09:10 Oxygen Delivery Me thod Room Air 12/28/23 09:10 MDM - General Adult Medical Decision Making Draining seroma. From description of things he is he moves it will start to drain more I think he probably developed a seroma postoperatively and its tunneled its way to create a fistula to the surface and is now draining. Discussed the patient is likely to continue to drain intermittently and with activity over the next several days. Sutures were left in place he has an upcoming appoint with Dr. Sutton follow-up with him return if he develops fever. Medical Records I reviewed the patient's medical records. No radiology studies performed this visit Discharge Plan Discharge Patient Disposition: Home Clinical Impression: Seroma after procedure Condition: Stable Prescriptions: No Action diclofenac sodium 75 mg tablet,delayed release (DR/EC) 75 mg PO Q12H PRN (Reason: pain) Qty: 30 1RF albuterol sulfate [Ventolin HFA] 90 mcg/actuation HFA aerosol inhaler 2 puff inhalation Q6H PRN (Reason: shortness of breath or wheezing) Qty: 8.5 0RF levothyroxine 300 mcg tablet 300 mcg PO DAILY Qty: 90 5RF hydrocodone-acetaminophen 7.5-325 mg tablet 1 tab PO Q6H PRN (Reason: pain) Qty: 20 0RF Colace 100 mg capsule 100 mg PO BID Qty: 14 0RF docusate sodium [Dulcolax Stool Softener (dss)] 100 mg capsule 100 mg PO DAILY PRN (Reason: Constipation) Hold Instructions: Resume on 12/17/23. Rx Instructions: take as directed for colonoscopy prep pantoprazole 40 mg tablet,delayed release (DR/EC) 40 mg PO BID 42 Days Qty: 84 1RF albuterol sulfate 90 mcg/actuation HFA aerosol inhaler 2 inh inhalation Q4H PRN (Reason: shortness of breath or wheezing) Qty: 8.5 0RF ondansetron 4 mg tablet,disintegrating 4 mg PO Q6H PRN (Reason: nausea and vomiting) Qty: 14 0RF Discharge Orders: Discharge ED (Routine); Ordered 12/28/23 Ordered By: Domingo Morales Referrals: Jozef Brown MD [Primary Care Provider] - Discharge Diet: Usual diet Discharge Activity: Resume usual activity Patient Instructions: Opioid Safety, Pain Management Activity Restrictions/Additional Instructions: Thank you for choosing [facility] for your healthcare needs today. It is very important that you follow up as instructed or that you return to the Emergency Department should you have concerns or if your condition changes or worsens in any way. You were seen today for drainage from your wound on your back. The drainage is from a seroma. These are typical after this type of surgery where fluid builds up under the skin and adipose tissue especially when there has been tissue removed creating a space under the skin. It is likely to continue to drain. Change dressing as needed. Follow-up with Dr. Sutton as previously prescribed use pain medications previously prescribed. Stand Alone Forms: Work/School Release Coding Level of Care Code ED Clinical Nursing Assistant for Janina Nunez
[2023-12-28 09:10] VITALS: BP 147/78; O2SAT 98
[2023-12-28] MEDS: HYDROcodone-acetaminophen 5-325 mg Tablet 1 TAB PO (09:10)
== END 2023-12-28 09:13 | disposition home or self-care (01) ==
PROVIDERS: Emergency Provider Family Medicine; PCP Family Medicine Adult Medicine
DX: L76.34 Postprocedural seroma of skin and subcutaneous tissue following other procedure (principal); Z79.899 Other long term (current) drug therapy
CPT/HCPCS: 99283

== ENCOUNTER 2023-12-29 03:44 | Emergency (ER) | payer BC, MEDICAID, SELFPAY ==
[2023-12-29 03:48] VITALS: BP 111/71; PULSE 88; RESP 18; TEMP 36.6; O2SAT 98; BMI 43.5
--- NOTE | 2023-12-29 04:03 | W.ED.WOUNDLC ---
HPI - Wound/Laceration General: Chief Complaint: Wound/Laceration Stated Complaint: Bleeding from surg site Time Seen by Provider: 12/29/23 03:52 History of Present Illness: Patient arrived by EMS with complaints of bleeding from surgical site. Appears patient had a benign tumor removed from his back by Dr. Sutton on 618, patient is seen by Dr. Ramsey on 623, and Dr. Morales on 7 4, patient still having quite a bit of serosanguineous drainage out of it and is now complaining of pain. Review of Systems General: Reports: 10 or more systems reviewed and unremarkable except in HPI and below PFSH ED PFSH: Medical History Subcutaneous mass of back FH: Crohn's disease TMJ (temporomandibular joint syndrome) Bilateral lower extremity edema Hypothyroidism Urge incontinence of urine Cannabis dependence Depression Anxiety Asthma Chronic pain bilateral knees, lateral SIJ's and low back pain Bipolar 1 disorder Paranoid schizophrenia Has a hallucinations visual and hearing voices Hallucination Family History Father No problems noted. Mother Lupus Acute Crohn's disease Acute pancreatitis Cancer Social History Smoking and tobacco/nicotine status: current some day tobacco/nicotine user Quit status (tobacco/nicotine): has tried quititng Second hand smoke exposure: No Alcohol intake: current Alcohol intake frequency: few times a month Alcohol type: other Substance/Drug Use: current Substance/Drug use frequency: daily Adopted: No Caregiver/support person: No Lives independently: Yes Household members: other Housing: Apartment Physical Exam Const: COMMON NORMALS: no acute distress, average body habitus, patient oriented x3, no limitations, healthy appearing, alert and well nourished Neck/C-Spine: COMMON NORMALS: no JVD Chest: COMMONS NORMALS: normal inspection of the chest and normal palpation of entire chest wall Resp: COMMON NORMALS: normal respiratory effort, No retractions, No use of accessory muscles and clear to auscultation bilaterally AUSCULTATION: clear to auscultation bilaterally Cardio: COMMON NORMALS: no JVD, regular rate, regular rhythm, S1 normal heart sound present, S2 normal heart sound present, No gallops present (Cardio), No clicks present (Cardio), No murmurs present (Cardio) and No rub (Cardio) RATE: regular rate RHYTHM: regular rhythm HEART SOUNDS: S1 normal heart sound present and S2 normal heart sound present GI: COMMON NORMALS: Normal to inspection, nondistended, normoactive bowel sounds present, Soft to palpation, non-tender, No hepatosplenomegaly present and no masses PALPATION: Yes Soft to palpation and Yes No hepatosplenomegaly present Neuro: COMMON NORMALS: patient oriented x3 SENSORIUM/ORIENTATION: Yes alert Skin: NARRATIVE SKIN EXAM: Surgical incision on posterior lumbar area draining serosanguineous drainage otherwise looks unremarkable, sutures intact, minimal erythema no purulence no odor, Course Vital Signs: Vital signs: Vital Signs Temperature 98.4 F 12/29/23 05:01 Pulse Rate 88 12/29/23 05:01 Respiratory Rate 18 12/29/23 05:01 Blood Pressure 136/82 12/29/23 05:01 Pulse Oximetry 93 12/29/23 05:01 Oxygen Delivery Me thod Room Air 12/29/23 04:56 MDM - Wound/Laceration Medical Decision Making We will change the patient's dressing, we will place him on a low-dose of hydrocodone as needed for pain. Patient should keep his appointment with Dr. Sutton for reevaluation. Medical Records I reviewed the patient's medical records. Lab Data I reviewed the patient's lab results. No radiology studies performed this visit Discharge Plan Discharge Patient Disposition: Home Clinical Impression: Encounter for wound re-check Condition: Stable Prescriptions: New hydrocodone-acetaminophen 5-325 mg tablet 1 tab PO Q6H PRN (Reason: pain) Qty: 14 0RF No Action diclofenac sodium 75 mg tablet,delayed release (DR/EC) 75 mg PO Q12H PRN (Reason: pain) Qty: 30 1RF albuterol sulfate [Ventolin HFA] 90 mcg/actuation HFA aerosol inhaler 2 puff inhalation Q6H PRN (Reason: shortness of breath or wheezing) Qty: 8.5 0RF levothyroxine 300 mcg tablet 300 mcg PO DAILY Qty: 90 5RF hydrocodone-acetaminophen 7.5-325 mg tablet 1 tab PO Q6H PRN (Reason: pain) Qty: 20 0RF Colace 100 mg capsule 100 mg PO BID Qty: 14 0RF docusate sodium [Dulcolax Stool Softener (dss)] 100 mg capsule 100 mg PO DAILY PRN (Reason: Constipation) Hold Instructions: Resume on 12/17/23. Rx Instructions: take as directed for colonoscopy prep pantoprazole 40 mg tablet,delayed release (DR/EC) 40 mg PO BID 42 Days Qty: 84 1RF albuterol sulfate 90 mcg/actuation HFA aerosol inhaler 2 inh inhalation Q4H PRN (Reason: shortness of breath or wheezing) Qty: 8.5 0RF ondansetron 4 mg tablet,disintegrating 4 mg PO Q6H PRN (Reason: nausea and vomiting) Qty: 14 0RF Discharge Orders: Discharge ED (Routine); Ordered 12/29/23 Ordered By: Jake Matt Referrals: Jozef Brown MD [Primary Care Provider] - 1 week Patient Instructions: Opioid Safety, Pain Management, Wound Care (General) Activity Restrictions/Additional Instructions: Your wound was draining serosanguineous drainage which is normal. Please keep your wound clean and dry and this may require changing bandage multiple times throughout the day. You have been prescribed a pain medicine please take it as directed. Please keep your appointment with Dr. Sutton as previously noted. Coding Level of Care Code ED Senior Data Scientist for Janina Nunez
[2023-12-29] MEDS: HYDROcodone-acetaminophen 5-325 mg Tablet 1 TAB PO (04:18)
[2023-12-29 04:22] VITALS: BP 138/84; PULSE 86; RESP 18; O2SAT 99
[2023-12-29 04:56] VITALS: BP 136/82; PULSE 88; RESP 18; TEMP 36.9; O2SAT 93
[2023-12-29 05:01] VITALS: BP 136/82; PULSE 88; RESP 18; TEMP 36.9; O2SAT 93
== END 2023-12-29 05:27 | disposition home or self-care (01) ==
PROVIDERS: Emergency Provider Emergency Medicine; PCP Family Medicine Adult Medicine
DX: S31.000A Unspecified open wound of lower back and pelvis without penetration into retroperitoneum, initial encounter (principal); Z79.899 Other long term (current) drug therapy; Z98.890 Other specified postprocedural states; X58.XXXA Exposure to other specified factors, initial encounter
CPT/HCPCS: 99283

== ENCOUNTER 2023-12-31 12:41 | Inpatient (IN) | payer BC, MEDICAID, SELFPAY ==
[2023-12-31] VITALS (18 sets, daily range): BP systolic 109–178; BP diastolic 48–106; PULSE 78–97; RESP 16–22; TEMP 36.2–37.1; O2SAT 91–100; BMI 43.5; BMI 35.6
--- NOTE | 2023-12-31 13:17 | ED_ITS ---
HPI - Wound/Laceration 2 General: Chief Complaint: Wound/Laceration Stated Complaint: low back pain/Stiches coming out Time Seen by Provider: 12/31/23 13:16 History of Present Illness: 28-year-old male patient comes in today for surgical wound draining with surrounding erythema. Patient has been seen on the fourth and the fifth for similar complaints. Review of the record noted that patient wound was not draining at the time and was unremarkable on the fifth. Today patient felt a pop with the loss of 1 suture and since then has been draining significantly purulent fluid. Patient has surrounding erythema of the wound approximately 16 cm. Patient appears pale. Patient reports significant pain. Patient also reports having his gallbladder removed either before the removal of the lipoma or a at the same time. Patient appears unwell. Patient has a history of obesity, GERD, hypothyroidism, asthma. Review of Systems 2 General: Reports: 10 or more systems reviewed and unremarkable except in HPI and below PFSH ED 2 PFSH: Medical History Subcutaneous mass of back FH: Crohn's disease TMJ (temporomandibular joint syndrome) Bilateral lower extremity edema Hypothyroidism Urge incontinence of urine Cannabis dependence Depression Anxiety Asthma Chronic pain bilateral knees, lateral SIJ's and low back pain Bipolar 1 disorder Paranoid schizophrenia Has a hallucinations visual and hearing voices Hallucination Family History Father No problems noted. Mother Lupus Acute Crohn's disease Acute pancreatitis Cancer Social History Smoking and tobacco/nicotine status: current some day tobacco/nicotine user Quit status (tobacco/nicotine): has tried quititng Second hand smoke exposure: No Alcohol intake: current Alcohol intake frequency: few times a month Alcohol type: other Substance/Drug Use: current Substance/Drug use frequency: daily Adopted: No Caregiver/support person: No Lives independently: Yes Household members: other Housing: Apartment Physical Exam 2 Const: COMMON NORMALS: alert HENMT: COMMON NORMALS: normocephalic HEAD & SCALP: normocephalic Neck/C-Spine: COMMON NORMALS: full ROM Resp: COMMON NORMALS: normal respiratory effort and clear to auscultation bilaterally AUSCULTATION: clear to auscultation bilaterally Cardio: COMMON NORMALS: regular rate and regular rhythm RATE: regular rate RHYTHM: regular rhythm GI: COMMON NORMALS: Soft to palpation PALPATION: Yes Soft to palpation and No Tenderness to palpation present (GI) Back/Pelvis: THORACIC SPINE/UPPER BACK: Yes normal to inspection OTHER: Patient has a surgical wound to the right flank area with significant surrounding erythema approximately 16 cm. Extremity: COMMON NORMALS: normal to inspection Neuro: SENSORIUM/ORIENTATION: Yes alert Skin: NARRATIVE SKIN EXAM: Erythematous area to the right flank surrounding surgical incision with sutures closing. One of the sutures is missing and purulent drainage is coming from the wound. Course 2 Vital Signs: Vital signs: Vital Signs Temperature 98.1 F 12/31/23 12:45 Pulse Rate 95 12/31/23 12:45 Respiratory Rate 18 12/31/23 12:45 Blood Pressure 124/79 12/31/23 12:45 Pulse Oximetry 97 12/31/23 12:45 Oxygen Delivery Me thod Room Air 12/31/23 12:45 MDM - Wound/Laceration Medical Decision Making Patient comes in today for worsening redness and pain to his surgical incision site for a lipoma removal. Patient was diagnosed with a seroma on the fourth had increasing pain and discomfort over the last 2 days to the point where he now has significant erythema and opening of the wound with drainage of purulent fluid. Differential diagnosis includes surgical wound abscess, seroma, sepsis, cellulitis. 1350, talk to Dr. Fatima, presales consultant surgeon, believe patient most likely will need to have the surgical wound opened for cleaning out and possible debridement. Dr. Fatima agreed and will come and visit with the patient. 1407, Dr. Fatima evaluated patient and accepted for admission. He plans to take patient to surgery this evening for washout of wound. Reviewed patient with Dr. Fernandez, attending ER physician who agreed with plan and will place admit orders. Patient states understanding and agrees to plan. Lab Data 12/31/23 13:45 12/31/23 13:45 Laboratory Results WBC 8.46 10^3/uL (3.29-11.43) 12/31/23 13:45 RBC 3.99 10^6/uL (3.85-5.65) 12/31/23 13:45 Hgb 11.90 g/dL (11.27-16.99) 12/31/23 13:45 Hct 37.1 % (37-53) 12/31/23 13:45 MCV 93.0 fl (82-101) 12/31/23 13:45 MCH 29.8 pg (27-33) 12/31/23 13:45 MCHC 32.1 g/dL (30-55) 12/31/23 13:45 RDW 14.0 % (12.1-15.1) 12/31/23 13:45 Plt Count 283 10^3/cmm (157-399) 12/31/23 13:45 MPV 11.3 fL (7.4-10.4) H 12/31/23 13:45 Neut % (Auto) 68.5 % 12/31/23 13:45 Lymph % (Auto) 15.6 % 12/31/23 13:45 [place] % (Auto) 8.7 % 12/31/23 13:45 Eos % (Auto) 2.7 % 12/31/23 13:45 Baso % (Auto) 0.7 % 12/31/23 13:45 Neut # (Auto) 5.79 10^3/uL (1.8-7.7) 12/31/23 13:45 Lymph # (Auto) 1.3 10^3/uL (0.8-4.8) 12/31/23 13:45 [place] # (Auto) 0.7 10^3/uL (0.2-0.9) 12/31/23 13:45 Eos # (Auto) 0.2 10^3/uL (0.0-0.8) 12/31/23 13:45 Baso # (Auto) 0.1 10^3/uL (0.0-0.1) 12/31/23 13:45 Nucleated RBC % (auto) 0 % 12/31/23 13:45 Nucleated RBCs # 0.0 /100WBC 12/31/23 13:45 Sodium 138 mmol/L (136-145) 12/31/23 13:45 Potassium 3.7 mmol/L (3.5-5.1) 12/31/23 13:45 Anion Gap 14.7 (5-19) 12/31/23 13:45 BUN 14 mg/dL (6-20) 12/31/23 13:45 Creatinine 0.8 mg/dL (0.7-1.2) 12/31/23 13:45 GFR Calculation 114.3 mL/min (90-130) 12/31/23 13:45 Glucose 87 mg/dL (65-115) 12/31/23 13:45 Calculated Osmolality 286 mOsm/kg (285-295) 12/31/23 13:45 Lactic Acid 0.7 mmol/L (0.5-2.2) 12/31/23 13:45 Calcium 9.2 mg/dL (8.5-10.5) 12/31/23 13:45 Total Bilirubin 0.8 mg/dL (0.15-1.2) 12/31/23 13:45 AST 30 U/L (0-40) 12/31/23 13:45 Alkaline Phosphatase 100 U/L (40-130) 12/31/23 13:45 Total Protein 8.0 g/dL (6.6-8.7) 12/31/23 13:45 Albumin 4.1 g/dL (3.5-5.2) 12/31/23 13:45 Globulin 3.9 g/dL (1.3-4.6) 12/31/23 13:45 XR interpretation done by ED provider, pending radiology final review Discharge Plan Discharge Condition: Stable Prescriptions: No Action diclofenac sodium 75 mg tablet,delayed release (DR/EC) 75 mg PO Q12H PRN (Reason: pain) Qty: 30 1RF albuterol sulfate [Ventolin HFA] 90 mcg/actuation HFA aerosol inhaler 2 puff inhalation Q6H PRN (Reason: shortness of breath or wheezing) Qty: 8.5 0RF levothyroxine 300 mcg tablet 300 mcg PO DAILY Qty: 90 5RF meloxicam 15 mg tablet 15 mg PO DAILY Qty: 7 0RF amoxicillin-pot clavulanate 875-125 mg tablet 1 tab PO BID 10 Days Qty: 20 0RF hydrocodone-acetaminophen 7.5-325 mg tablet 1 tab PO Q6H PRN (Reason: pain) Qty: 20 0RF Colace 100 mg capsule 100 mg PO BID Qty: 14 0RF hydrocodone-acetaminophen 5-325 mg tablet 1 tab PO Q6H PRN (Reason: pain) Qty: 14 0RF docusate sodium [Dulcolax Stool Softener (dss)] 100 mg capsule 100 mg PO DAILY PRN (Reason: Constipation) Hold Instructions: Resume on 12/17/23. Rx Instructions: take as directed for colonoscopy prep pantoprazole 40 mg tablet,delayed release (DR/EC) 40 mg PO BID 42 Days Qty: 84 1RF albuterol sulfate 90 mcg/actuation HFA aerosol inhaler 2 inh inhalation Q4H PRN (Reason: shortness of breath or wheezing) Qty: 8.5 0RF ondansetron 4 mg tablet,disintegrating 4 mg PO Q6H PRN (Reason: nausea and vomiting) Qty: 14 0RF Referrals: Jozef Brown MD [Primary Care Provider] - Coding Level of Care Code ED Market Research Assistant for Janina Nunez
--- NOTE | 2023-12-31 13:23 | CTR_ITS ---
PROCEDURE INFORMATION: Exam: CT Abdomen And Pelvis With Contrast Exam date and time: 12/31/2023 2:11 PM Age: 28 years old Clinical indication: Other: Tumor removed on RT side; Prior surgery; Surgery date: <1 month; Additional info: Wound infection TECHNIQUE: Imaging protocol: Computed tomography of the abdomen and pelvis with contrast. Axial, coronal and sagittal reformatted images were created and reviewed. Radiation optimization: All CT scans at this facility use at least one of these dose optimization techniques: automated exposure control; mA and/or kV adjustment per patient size (includes targeted exams where dose is matched to clinical indication); or iterative reconstruction. Contrast material: OMNI 350; Contrast volume: 100 ml; Contrast route: INTRAVENOUS (IV); COMPARISON: US gall bladder [id number] 09/08/2023 8:30 AM RADIATION DOSE METRICS: Total DLP (mGy-cm): 1238.73 FINDINGS: Liver: Mild hepatomegaly. Gallbladder and biliary ducts: Status post cholecystectomy. No biliary ductal dilatation. Pancreas: Unremarkable. Spleen: Unremarkable. Adrenal glands: Normal. No mass. Kidneys and ureters: Nonobstructing left renal calculus. No hydronephrosis. Stomach and bowel: No bowel wall thickening. No obstruction. No pneumatosis. Appendix: Normal. Intraperitoneal space: No free fluid. No organized fluid collection. No free air. Vasculature: Unremarkable. No aneurysm. Lymph nodes: No pathologically enlarged lymph nodes. Urinary bladder: Unremarkable as visualized. Reproductive: Unremarkable. Bones/joints: No acute osseous abnormality. Soft tissues: 13.9 x 6.9 x 7.4 cm mildly complex, loculated collection overlying the right lumbar paraspinous musculature. Moderate infiltration of the surrounding subcutaneous fat with overlying skin thickening and subjacent prominence of the paraspinous musculature. CT/CT abdomen pelvis w con* [id number] IMPRESSION: 1. Probable developing abscess along the superficial aspect of the right lumbar paraspinous musculature, as described above. 2. Additional findings, as above.
[2023-12-31 13:55] LABS: Basophils # 0.1 10^3/uL (0.0-0.1); Basophils % 0.7 %; Eosinophils # 0.2 10^3/uL (0.0-0.8); Eosinophils % 2.7 %; Hematocrit 37.1 % (37-53); Lymphocytes # 1.3 10^3/uL (0.8-4.8); Lymphocytes % 15.6 %; Mean Corpuscular HGB Conc 32.1 g/dL (30-55); Mean Corpuscular Hemoglobin 29.8 pg (27-33); Mean Platelet Volume 11.3 fL (7.4-10.4); Monocytes # 0.7 10^3/uL (0.2-0.9); Monocytes % 8.7 %; Neutrophils # 5.79 10^3/uL (1.8-7.7); Neutrophils % 68.5 %; Nucleated Red Blood Cells % 0 %; Platelet Count 283 10^3/cmm (157-399); Red Blood Count 3.99 10^6/uL (3.85-5.65); White Blood Count 8.46 10^3/uL (3.29-11.43)
[2023-12-31] MEDS: iohexol 350 mg/mL 500 mL Btl (per mL) IV (14:13)
[2023-12-31 14:14] LABS: Alanine Aminotransferase 52 U/L (0-41); Albumin Level 4.1 g/dL (3.5-5.2); Alkaline Phosphatase 100 U/L (40-130); Anion Gap 14.7 (5-19); Aspartate Amino Transferase 30 U/L (0-40); Blood Urea Nitrogen 14 mg/dL (6-20); Calcium 9.2 mg/dL (8.5-10.5); Carbon Dioxide 30 mmol/L (22-29); Chloride 97 mmol/L (98-107); Creatinine Clr Calc Pharmacy 168.1727; Globulin 3.9 g/dL (1.3-4.6); Glomerular Filtration Rate 114.3 mL/min (90-130); Glucose 87 mg/dL (65-115); Lactic Sepsis W/Reflex 0.7 mmol/L (0.5-2.2); Osmolality Calculated 286 mOsm/kg (285-295); Potassium 3.7 mmol/L (3.5-5.1); Sodium 138 mmol/L (136-145); Total Bilirubin 0.8 mg/dL (0.15-1.2)
[2023-12-31 14:19] LABS: Procalcitonin 0.53 ng/mL (0-0.5)
[2023-12-31] MEDS: sodium chloride 0.9% 1,000 ML 999 ML IV (14:27)
[2023-12-31] MEDS: ondansetron 2 mg/ML SDV 2 mL 4 MG IVP (14:31)
[2023-12-31] MEDS: morphine 4 mg/mL SDV 1 mL IVP (14:33)
[2023-12-31] MEDS: piperacillin-tazobactam 4.5 GM in sodium chloride 0.9% (plus) 50 ML IV (14:41)
[2023-12-31] MEDS: vancomycin 1,000 MG in sodium chloride 0.9% 250 ML 250 MG IV (15:21)
--- NOTE | 2023-12-31 17:35 | P.HP_ITS ---
Providers/Chief Complaint 2 Admitting Physician: Moose Fatima MD Primary Care Provider: Jozef Brown MD Chief Complaint: low back pain/Stiches coming out History of Present Illness Shay Rubi is a 28 year old male who has a history of lower back subfascial mass excision on December 12, [address] Sutton and who presents with erythema of the lower back and purulent drainage from the wound. Patient states that since surgery he was noted some irritation and swelling on the area of the mass excision, he presented to the emergency department December 27 at the time during evaluation it was noted that he was probably developing a seroma at the area of the procedure, he was sent home with pain medication. He presented again the next day with similar symptoms are worsening with drainage, he was started on antibiotics was supposed to follow-up with Dr. Sutton next week. Unfortunately his symptoms have worsened over the last 48 hours, now presents with purulent drainage and significant swelling of the soft tissue of the back. Review of Systems 2 General: Reports: 10 or more systems reviewed and unremarkable except in HPI and below Medications/Allergies Home Medications Medication Instructions Recorded Confirmed Last Taken Type levothyroxine 300 mcg tablet 300 mcg PO DAILY low thyroid #90 04/12/23 12/17/23 12/11/23 Rx tabs docusate sodium 100 mg capsule 100 mg PO DAILY PRN Constipation 08/14/23 12/17/23 Unknown History (Dulcolax Stool Softener (docusate)) pantoprazole 40 mg tablet,delayed 40 mg PO BID 6 weeks #84 tabs 08/16/23 12/17/23 12/10/23 Rx release albuterol sulfate 90 mcg/actuation 2 inh inhalation Q4H PRN shortness 08/31/23 12/17/23 12/11/23 Rx aerosol inhaler of breath or wheezing #8.5 grams diclofenac sodium 75 mg 75 mg PO Q12H PRN pain #30 tabs 11/07/23 12/17/23 Unknown Rx tablet,delayed release albuterol sulfate 90 mcg/actuation 2 puff inhalation Q6H PRN 11/16/23 12/17/23 12/11/23 Rx aerosol inhaler (Ventolin HFA) shortness of breath or wheezing #8.5 grams ondansetron 4 mg disintegrating 4 mg PO Q6H PRN nausea and 11/21/23 12/17/23 12/10/23 Rx tablet vomiting #14 tabs docusate sodium 100 mg capsule 100 mg PO BID #14 caps 12/12/23 12/17/23 Unknown Rx (Colace) hydrocodone 7.5 mg-acetaminophen 1 tab PO Q6H PRN pain #20 tabs 12/12/23 12/17/23 Unknown Rx 325 mg tablet amoxicillin 875 mg-potassium 1 tab PO BID 10 days #20 tabs 12/29/23 Unknown Rx clavulanate 125 mg tablet hydrocodone 5 mg-acetaminophen 325 1 tab PO Q6H PRN pain #14 tabs 12/29/23 Unknown Rx mg tablet meloxicam 15 mg tablet 15 mg PO DAILY #7 tabs 12/29/23 Unknown Rx Allergies Allergy/AdvReac Type Severity Reaction Status Date / Time No Known Allergies Allergy Verified 12/31/23 12:54 PFSH Acute 2 PFSH: Medical History Subcutaneous mass of back FH: Crohn's disease TMJ (temporomandibular joint syndrome) Bilateral lower extremity edema Hypothyroidism Urge incontinence of urine Cannabis dependence Depression Anxiety Asthma Chronic pain bilateral knees, lateral SIJ's and low back pain Bipolar 1 disorder Paranoid schizophrenia Has a hallucinations visual and hearing voices Hallucination Family History Father No problems noted. Mother Lupus Acute Crohn's disease Acute pancreatitis Cancer Social History Smoking and tobacco/nicotine status: current some day tobacco/nicotine user Quit status (tobacco/nicotine): has tried quititng Second hand smoke exposure: No Alcohol intake: current Alcohol intake frequency: few times a month Alcohol type: other Substance/Drug Use: current Substance/Drug use frequency: daily Adopted: No Caregiver/support person: No Lives independently: Yes Household members: other Housing: Apartment Vitals/I&O/Wt Last Vital Signs Temp 97.1 F L 12/31/23 17:26 Pulse 87 12/31/23 17:26 Resp 22 H 12/31/23 17:26 BP 112/61 12/31/23 17:26 Pulse Ox 96 12/31/23 17:26 O2 Del Method Room Air 12/31/23 17:26 12/31/23 12/31/23 12/31/23 06:59 14:59 22:59 Intake Total 1300 / 1300 Balance 1300 / 1300 Weight last 48 hrs Weight 221 lb 1.6 oz Weight 270 lb Physical Exam 2 Narrative: General : Patient is well developed , no acute distress, oriented x3 Head : Normal cephalic, a-traumatic. Nose : Mucous membranes are without erythema. Lungs : Equal chest rise bilaterally, no use of accessory muscles, trachea is midline. CV : Rate and rhythm are normal. Abdomen : Soft, ND, NT, no g/r/m There are surgical incisions are healing well. Extremities : No edema. Upper extremities are normal bilaterally. Back : On the right lower back there is a surgical incision measuring about 7 cm, there is partial dehiscence of the wound and active purulent drainage from it. There is extensive erythema of the posterior back extending into the right flank, the area spans an area of about 15 to 16 cm from the wound. There is significant tenderness at this level. Data 12/31/23 13:45 12/31/23 13:45 Micro: Microbiology 12/31/23 13:45 Blood Culture - Preliminary Blood SPECIMEN COLLECTED 12/31/23 13:46 Blood Culture - Preliminary Blood SPECIMEN COLLECTED A&P Assessment and plan (1) Deep incisional surgical site infection: (2) Necrotizing soft tissue infection: Plan Picture complete history physical examination and review of all available clinical data the following is my assessment. Patient has presented with a surgical site infection, CT scan of the abdomen pelvis showed evidence of a large abscess extending all the way down to the paraspinous muscle. Physical examination is concerning for the possibility of developing necrotizing soft tissue infection. Patient will be started on broad-spectrum antibiotics and will be immediately taken to the OR for debridement washout to prevent full- thickness tension of the infection. I have discussed all risk and benefits of the procedure with the patient including the risk of bleeding, infection, poor cosmetic outcome, need for wound VAC therapy, injury to surrounding structures, sepsis and . Patient shows understanding and agrees. -On-call to the OR -IV antibiotics -Pain control -Will be admitted as inpatient after surgery. Attestations 2 Medical Necessity Statement*: Per medical team Coding Level of Care Code Acute Code for [facility] Diagnoses Deep incisional surgical site infection T81.42XA Necrotizing soft tissue infection M79.89
--- NOTE | 2023-12-31 17:56 | P.ANESASSM_ITS ---
Pre-Anesthetic Assessment Height/Weight: Height 1.68 m Weight 100.289 kg Temp Pulse Resp BP Pulse Ox O2 Del Method 97.8 F 91 17 112/48 95 Room Air 12/31/23 17:34 12/31/23 17:34 12/31/23 17:34 12/31/23 17:34 12/31/23 17:34 12/31/23 17:34 Operation Date: 12/31/23 17:25 Proposed Procedures p Incision And Drainage I&D Lower Back(Not Applicable) - Mooes Fatima MD Familial anesthetic complications: None Was Beta Donato taken within 24 hours: N/A Was Clonidine taken within 24 hours: N/A Last intake: Intake Last Liquid Date 12/31/23 Last Liquid Time 13:00 Last Solid Date 12/31/23 Last Solid Time 13:00 Social Tobacco and No alcohol marijuana use this afternoon Exam alert, oriented x 3, clear to auscultation bilaterally and regular rate & rhythm Airway Mallampati: Class III Dentition: other Pulmonary Asthma GI Gastroesophageal Reflux Disease Anesthetic Plan ASA status: 3 Anesthesia: General Risk of > 500 ml blood loss (7ml/kg in children): No Medications/Allergies Home Medications Medication Instructions Recorded Confirmed Last Taken Type levothyroxine 300 mcg tablet 300 mcg PO DAILY low thyroid #90 04/12/23 12/17/23 12/11/23 Rx tabs docusate sodium 100 mg capsule 100 mg PO DAILY PRN Constipation 08/14/23 12/17/23 Unknown History (Dulcolax Stool Softener (docusate)) pantoprazole 40 mg tablet,delayed 40 mg PO BID 6 weeks #84 tabs 08/16/23 12/17/23 12/10/23 Rx release albuterol sulfate 90 mcg/actuation 2 inh inhalation Q4H PRN shortness 08/31/23 12/17/23 12/11/23 Rx aerosol inhaler of breath or wheezing #8.5 grams diclofenac sodium 75 mg 75 mg PO Q12H PRN pain #30 tabs 11/07/23 12/17/23 Unknown Rx tablet,delayed release albuterol sulfate 90 mcg/actuation 2 puff inhalation Q6H PRN 11/16/23 12/17/23 12/11/23 Rx aerosol inhaler (Ventolin HFA) shortness of breath or wheezing #8.5 grams ondansetron 4 mg disintegrating 4 mg PO Q6H PRN nausea and 11/21/23 12/17/23 12/10/23 Rx tablet vomiting #14 tabs docusate sodium 100 mg capsule 100 mg PO BID #14 caps 12/12/23 12/17/23 Unknown Rx (Colace) hydrocodone 7.5 mg-acetaminophen 1 tab PO Q6H PRN pain #20 tabs 12/12/23 12/17/23 Unknown Rx 325 mg tablet amoxicillin 875 mg-potassium 1 tab PO BID 10 days #20 tabs 12/29/23 Unknown Rx clavulanate 125 mg tablet hydrocodone 5 mg-acetaminophen 325 1 tab PO Q6H PRN pain #14 tabs 12/29/23 Unknown Rx mg tablet meloxicam 15 mg tablet 15 mg PO DAILY #7 tabs 12/29/23 Unknown Rx Allergies Allergy/AdvReac Type Severity Reaction Status Date / Time No Known Allergies Allergy Verified 12/31/23 12:54 PFSH Anesthesia Medical History Subcutaneous mass of back FH: Crohn's disease TMJ (temporomandibular joint syndrome) Bilateral lower extremity edema Hypothyroidism Urge incontinence of urine Cannabis dependence Depression Anxiety Asthma Chronic pain bilateral knees, lateral SIJ's and low back pain Bipolar 1 disorder Paranoid schizophrenia Has a hallucinations visual and hearing voices Hallucination Family History Father No problems noted. Mother Lupus Acute Crohn's disease Acute pancreatitis Cancer Social History Smoking and tobacco/nicotine status: current some day tobacco/nicotine user Quit status (tobacco/nicotine): has tried quititng Second hand smoke exposure: No Alcohol intake: current Alcohol intake frequency: few times a month Alcohol type: other Substance/Drug Use: current Substance/Drug use frequency: daily Adopted: No Caregiver/support person: No Lives independently: Yes Household members: other Housing: Apartment Data Anesthesia 12/31/23 13:45 12/31/23 13:45 Short CBC 12/31/23 Range/Units 13:45 WBC 8.46 (3.29-11.43) 10^3/uL Hgb 11.90 (11.27-16.99) g/dL Hct 37.1 (37-53) % MCV 93.0 (82-101) fl Plt Count 283 (157-399) 10^3/cmm Neut % (Auto) 68.5 % Neut # (Auto) 5.79 (1.8-7.7) 10^3/uL BMP 12/31/23 13:45 Sodium 138 Potassium 3.7 Chloride 97 L Carbon Dioxide 30 H BUN 14 Creatinine 0.8 Glucose 87 Calcium 9.2 Liver Function 12/31/23 Range/Units 13:45 Total Bilirubin 0.8 (0.15-1.2) mg/dL AST 30 (0-40) U/L ALT 52 H (0-41) U/L Alkaline Phosphatase 100 (40-130) U/L Albumin 4.1 (3.5-5.2) g/dL Coags 12/31/23 13:45 C-Reactive Protein 291.0 H Microbiology 12/31/23 13:45 Blood Culture - Preliminary Blood SPECIMEN COLLECTED 12/31/23 13:46 Blood Culture - Preliminary Blood SPECIMEN COLLECTED Cardiac Studies: 2 No Data to Display
--- NOTE | 2023-12-31 18:01 | SUR.PREOP ---
1801 Pt returned to room . Procedure postphoned until 2100 due to pt having eaten at 1300.
[2023-12-31 19:46] LABS: Add Urine Culture? No; Add Urine Microscopic? YES; Bilirubin Urine Neg (Negative); Blood Urine Neg (Negative); Glucose Urine UA Norm (Normal); Ketones Urine 1+ (Negative); Leukocyte Esterase Urine Negative (Negative); Nitrate Urine Negative (Negative); Protein Urine Trace (Negative); RBC Urine 0-4 /hpf (0-2); Specific Gravity, Urine 1.001 (1.005-1.030); Urine Appearance Clear (CLEAR); Urine Color Yellow (Yellow); Urobilinogen Urine 1 mg/dL (Negative); pH Urine 6.5 (5-7)
[2023-12-31] MEDS: sodium chloride 0.9% 1,000 ML 100 ML IV (20:08)
--- NOTE | 2023-12-31 21:01 | PC.NURSE ---
Patient left the floor for surgery at 2057.
[2023-12-31] MEDS: piperacillin-tazobactam 3.375 GM in sodium chloride 0.9% (plus) 50 ML IV (21:45)
--- NOTE | 2023-12-31 21:59 | PM.OP ---
Operative Report Date of procedure: December 31, 2023 Pre-op diagnosis: Cellulitis and lower back deep surgical site infection Post-op diagnosis: Same Post-op findings: There was a large abscess cavity with about 100 cc of purulent fluid and blood clots Procedure done: Washout and debridement of lower back Specimens removed/disposition: Multiple wound cultures Surgeon: Moose Fatima MD Representative Personal Service: [facility] OR Staff Estimated blood loss: 10 Complications: none apparent Brief History: 28-year-old male who had a recent excision of right lower back mass, presents with concerns for possible surgical site infection and abscess formation. CT scan done in the emergency department show evidence of a large abscess in the deep tissue of the right lower back extending down up to the level of the musculature. There was significant cellulitis on examination. After discussion of risk and benefits we proceeded to the OR for debridement and washout. Procedure: After patient was brought into the OR, general anesthesia was given. He was then transferred to the OR table in the prone position. The right lower back was prepped and draped in usual sterile fashion. A timeout was conducted. This continues drainage of purulent material was noted from the wound, I proceeded to remove all superficial sutures and immediate drainage of large large amount of pus was noted, several wound cultures were taken from the abscess cavity. After this I proceeded to aspirate all the contents of the abscess cavity which were measured at about 100 cc of purulent fluid and blood clots. The abscess cavity was very large extending about 20 cm x 10 cm x 10 cm. Provide better exposure I decided to increase the superficial wound for another 5 cm to a total length of about 15 cm. The cavity was irrigated and then I proceeded to inspect the tissue, there was no evidence of significant necrosis but there was devitalized tissue on the size of the abscess cavity as well as the base. At the base of the wound the deep fascial plane appeared to be violated with exposed musculature underneath. There was no additional abscess at this level. I then proceeded to washout the cavity with 3 L of saline using a Pulsavac line patroller. Once the cavity was completely clean I obtain hemostasis. At this point I proceeded to pack the cavity, 2 full rolls of Kerlix soaked in Betadine were used to pack the cavity. A sterile dressing was applied. At the end of the procedure all counts were correct, the patient tolerated well the procedure was transferred to the PACU in stable condition.
--- NOTE | 2023-12-31 22:45 | ANE.PACU2 ---
Inpatient post-anesthesia follow up: Airway intact: Yes Vital signs: Temperature 97.6 F Pulse Rate 62 Respiratory Rate 18 Blood Pressure 112/77 Pulse Oximetry 97 Oxygen Delivery Me thod Room Air Oxygen Flow Rate 6 Fraction of Inspir ed Oxygen Hydration adequate: Yes Nausea and vomiting: No Pain level: 1 Mental status: Baseline
--- NOTE | 2023-12-31 23:08 | PC.NURSE ---
Patient arrived back to floor from surgery at 2255. This nurse received patient from MICHELE Hernandez.
[2023-12-31] MEDS: acetaminophen 325 mg Tablet 650 MG PO (23:35)
[2023-12-31] MEDS: vancomycin 1,500 MG/300 ML PIGGYBACK 200 MG IV (23:35)
[2023-12-31] MEDS: ketorolac 30 mg/mL INJ 15 MG IVP (23:36)
[2024-01-01] MEDS: sodium chloride 0.9% 1,000 ML 100 ML IV ×2 (02:10→16:15)
[2024-01-01] MEDS: nicotine 2 mg Gum BUCCAL (02:30)
--- NOTE | 2024-01-01 02:33 | PC.NURSE ---
Patient requested we took him outside to hit his vape because he needed nicotine. MICHELE Najera told patient we could give him a replacement because we could not take him outside. This nurse obtained an order for nicotine gum. Upon inspection, patient had his vape at bedside. This nurse educated the patient that we do not allow vaping in the rooms or on the premises. This nurse explained that we needed to lock it up in the [facility]. Patient was compliant. Vape in [facility] with patient label.
[2024-01-01 04:00] VITALS: BP 112/77; PULSE 62; RESP 18; TEMP 36.4; O2SAT 97
[2024-01-01 05:25] LABS: Basophils % 0.4 %; Eosinophils # 0.1 10^3/uL (0.0-0.8); Eosinophils % 0.7 %; Hematocrit 30.7 % (37-53); Lymphocytes # 0.7 10^3/uL (0.8-4.8); Lymphocytes % 9.7 %; Mean Corpuscular HGB Conc 31.3 g/dL (30-55); Mean Corpuscular Volume 95.9 fl (82-101); Mean Platelet Volume 10.9 fL (7.4-10.4); Monocytes # 0.5 10^3/uL (0.2-0.9); Monocytes % 6.6 %; Neutrophils # 5.55 10^3/uL (1.8-7.7); Nucleated Red Blood Cells % 0 %; Platelet Count 248 10^3/cmm (157-399); Red Cell Distribution Width 14.2 % (12.1-15.1); White Blood Count 7.02 10^3/uL (3.29-11.43)
[2024-01-01 05:36] LABS: Estmated Average Glucose 91; Hemoglobin A1C 4.8 % (4.0-6.0)
[2024-01-01 05:48] LABS: Anion Gap 12.1 (5-19); Blood Urea Nitrogen 14 mg/dL (6-20); Calcium 8.1 mg/dL (8.5-10.5); Carbon Dioxide 27 mmol/L (22-29); Chloride 104 mmol/L (98-107); Creatinine Clr Calc Pharmacy 140.2019; Glomerular Filtration Rate 99.8 mL/min (90-130); Glucose 118 mg/dL (65-115); Magnesium 2.4 mg/dL (1.7-2.3); Osmolality Calculated 290 mOsm/kg (285-295); Phosphorus 3.8 mg/dL (2.5-4.5); Potassium 4.1 mmol/L (3.5-5.1); Sodium 139 mmol/L (136-145)
[2024-01-01 05:54] LABS: Procalcitonin 0.32 ng/mL (0-0.5)
[2024-01-01] MEDS: piperacillin-tazobactam 3.375 GM in sodium chloride 0.9% (plus) 50 ML IV ×3 (05:56→20:39)
[2024-01-01] MEDS: ketorolac 30 mg/mL INJ 15 MG IVP ×3 (06:01→17:08)
[2024-01-01] MEDS: acetaminophen 325 mg Tablet 650 MG PO ×3 (06:36→17:08)
[2024-01-01] MEDS: levothyroxine 150 mcg Tablet 300 MCG PO (06:36)
[2024-01-01 07:22] VITALS: BP 120/71; PULSE 45; RESP 17; TEMP 36.3; O2SAT 98
[2024-01-01] MEDS: pantoprazole DR 40 mg Tablet PO (08:52)
[2024-01-01] MEDS: vancomycin 1,500 MG/300 ML PIGGYBACK 200 MG IV ×2 (10:49→22:50)
[2024-01-01 11:45] VITALS: BP 96/53; PULSE 54; RESP 20; TEMP 36.3; O2SAT 98
[2024-01-01 11:46] VITALS: BP 100/48
--- NOTE | 2024-01-01 14:39 | P.PN_ITS ---
Subjective 2 Subjective: Patient was evaluated at the bedside, doing well this afternoon, no significant pain states that the tenderness and redness is starting to improve. He insist that he wants to leave the hospital soon as possible. Vitals/I&O/Wt Last Vital Signs Temp 97.4 F L 01/01/24 11:45 Pulse 54 L 01/01/24 11:45 Resp 20 H 01/01/24 11:45 BP 100/48 01/01/24 11:46 Pulse Ox 98 01/01/24 11:45 O2 Del Method Room Air 01/01/24 11:45 O2 Flow Rate 6 12/31/23 22:14 12/31/23 01/01/24 01/01/24 22:59 06:59 14:59 Intake Total 1949 / 1949 903.333 / 2853.333 1528.333 / 1528.333 Output Total Balance 1939 / 1939 903.333 / 2843.333 1528.333 / 1528.333 Weight last 48 hrs Weight 240 lb 2 oz Weight 221 lb 1.6 oz Weight 270 lb Physical Exam 2 Back/Pelvis: OTHER: Examination of the back shows a wound that is packed with dressing, the dressing was removed, minimal purulence was still noted on the wound but nothing that could be expressed out, the packing was replaced. Data 01/01/24 05:03 01/01/24 05:03 Micro: Microbiology 12/31/23 13:46 Blood Culture - Preliminary Blood NEGATIVE TO DATE 12/31/23 21:37 Gram Stain - Final Back 12/31/23 15:34 Gram Stain - Final Back Wound Culture - Preliminary Coag positive Staphylococcus 12/31/23 13:45 Blood Culture - Preliminary Blood Staphylococcus sp coag neg A&P Assessment and plan (1) Deep incisional surgical site infection: Plan Patient is showing improvement after incision and drainage and debridement of lower back wound for deep surgical site infection. Patient is doing well, wound appears to start to clear up packing was replaced. I think he will need at least 2 more days of IV antibiotics and dressing as inpatient, patient is adamant that he would like to leave as soon as possible, there is high chance that he will decide to leave AGAINST MEDICAL ADVICE tomorrow. If that is the case we will proceed with daily packing in the outpatient setting and continue antibiotics p.o. Attestations 2 Medical Necessity Statement*: Patient will require another 48 hours of hospital stay for IV antibiotics and wound care Coding Level of Care Code Acute Code for [facility] Diagnoses Deep incisional surgical site infection T81.42XA
[2024-01-01 18:04] VITALS: BP 108/65; PULSE 49; RESP 17; TEMP 36.8; O2SAT 96
[2024-01-01 20:00] VITALS: BP 121/74; PULSE 73; RESP 18; TEMP 36.8; O2SAT 98
[2024-01-02] VITALS: BP 128/76; PULSE 71; RESP 18; TEMP 36.7; O2SAT 100
[2024-01-02] MEDS: ketorolac 30 mg/mL INJ 15 MG IVP ×3 (00:47→12:26)
[2024-01-02] MEDS: acetaminophen 325 mg Tablet 650 MG PO ×5 (00:47→23:56)
[2024-01-02] MEDS: sodium chloride 0.9% 1,000 ML 100 ML IV ×3 (00:51→23:54)
[2024-01-02 04:00] VITALS: BP 98/61; PULSE 59; RESP 18; TEMP 36.6; O2SAT 97
[2024-01-02] MEDS: levothyroxine 150 mcg Tablet 300 MCG PO (05:53)
[2024-01-02] MEDS: piperacillin-tazobactam 3.375 GM in sodium chloride 0.9% (plus) 50 ML IV ×3 (05:54→23:55)
[2024-01-02 06:44] LABS: Hematocrit 31.5 % (37-53); Mean Corpuscular HGB Conc 31.1 g/dL (30-55); Mean Corpuscular Volume 96.3 fl (82-101); Mean Platelet Volume 10.7 fL (7.4-10.4); Platelet Count 299 10^3/cmm (157-399); Red Blood Count 3.27 10^6/uL (3.85-5.65); Red Cell Distribution Width 14.6 % (12.1-15.1); White Blood Count 7.68 10^3/uL (3.29-11.43)
[2024-01-02 07:02] LABS: Blood Urea Nitrogen 14 mg/dL (6-20); Calcium 8.1 mg/dL (8.5-10.5); Carbon Dioxide 25 mmol/L (22-29); Chloride 109 mmol/L (98-107); Creatinine Clr Calc Pharmacy 154.3401; Glomerular Filtration Rate 114.3 mL/min (90-130); Glucose 92 mg/dL (65-115); Magnesium 2.1 mg/dL (1.7-2.3); Osmolality Calculated 296 mOsm/kg (285-295); Phosphorus 3.4 mg/dL (2.5-4.5); Sodium 143 mmol/L (136-145)
[2024-01-02 07:31] VITALS: BP 117/72; PULSE 60; RESP 18; TEMP 36.3; O2SAT 97
[2024-01-02 08:33] LABS: Slide Review Slide Review Perform
[2024-01-02 08:34] LABS: Absolute Eosinophils 0.5 10^3/cmm (0.0-0.7); Eosinophils 7 %; Giant Platelets 1+; Lymphocytes 27 %; Lymphocytes Absolute 2.1 10^3/cmm (1.2-3.4); Monocytes Absolute 0.8 10^3/cmm (0.1-0.6); Platelet Estimate Normal (Normal); Segmented Neutrophils 52 %; Total Cells Counted 100 (0-100)
[2024-01-02] MEDS: pantoprazole DR 40 mg Tablet PO (09:33)
[2024-01-02 10:00] LABS: Vancomycin Trough 9.5 ug/mL (10-15)
[2024-01-02] MEDS: vancomycin 1,500 MG/300 ML PIGGYBACK 200 MG IV (11:12)
[2024-01-02 11:35] VITALS: BP 127/85; PULSE 56; RESP 20; TEMP 36.8; O2SAT 99
[2024-01-02 16:25] VITALS: BP 94/58; PULSE 55; RESP 18; TEMP 36.4; O2SAT 99
--- NOTE | 2024-01-02 17:16 | P.PN_ITS ---
Subjective 2 Subjective: Patient is postoperative day 2 status post I&D of lower back abscess due to deep surgical site infection. Patient is doing very well, no significant pain no significant issues, white count has remained stable 7.6 this morning. His only concern is that he would like to go home. Vitals/I&O/Wt Last Vital Signs Temp 97.5 F L 01/02/24 16:25 Pulse 55 L 01/02/24 16:25 Resp 18 01/02/24 16:25 BP 94/58 01/02/24 16:25 Pulse Ox 99 01/02/24 16:25 O2 Del Method Room Air 01/02/24 16:25 O2 Flow Rate 6 12/31/23 22:14 01/02/24 01/02/24 01/02/24 06:59 14:59 22:59 Intake Total 1210 / 3810.000 1830 / 1830 530 / 2360 Balance 1210 / 3810.000 1830 / 1830 530 / 2360 Weight last 48 hrs Weight 230 lb 7 oz Weight 240 lb 2 oz Physical Exam 2 Back/Pelvis: OTHER: Cellulitis is markedly improved but there are still some redness around the wound especially at the level of the right flank. Packing was removed from the wound and there is minimal purulence at the base no other significant findings the wound otherwise appears to be healing well. Packing was replaced. Data 01/02/24 06:18 01/02/24 06:18 Micro: Microbiology 12/31/23 15:34 Gram Stain - Final Back Wound Culture - Final Staphylococcus aureus 12/31/23 21:37 Gram Stain - Final Back Wound Culture - Preliminary Coag positive Staphylococcus 12/31/23 21:37 Gram Stain - Final Back Anaerobic Culture - Preliminary Wound Culture - Preliminary Coag positive Staphylococcus 12/31/23 13:46 Blood Culture - Preliminary Blood NEGATIVE TO DATE A&P Assessment and plan (1) Deep incisional surgical site infection: Plan Adequate progression after incision and drainage and debridement right lower back. Patient will require at least 24 hours more of hospital stay to ensure improvement of the wound and to evaluate for any additional purulence. As an outpatient we will provide a referral to the wound care center as this wound is pretty significant and will likely require additional therapy as outpatient to heal. It may even benefit from a wound VAC but patient does not want to wait for a wound VAC authorization as inpatient. In the interim he can come daily to have dressing changed by nursing staff. Cultures are not back yet, in the case of lack of cultures by tomorrow I will send him on broad-spectrum antibiotics. Attestations 2 Medical Necessity Statement*: For possible discharge tomorrow Coding Level of Care Code Acute Code for [facility] Diagnoses Deep incisional surgical site infection T81.42XA
[2024-01-02 20:00] VITALS: BP 91/66; PULSE 76; RESP 18; TEMP 36.7; O2SAT 97
[2024-01-02] MEDS: VANCOMYCIN 200 MG IV (20:40)
[2024-01-02] MEDS: nicotine 4 mg lozenge MUCOUS MEM (20:40)
[2024-01-03] VITALS: BP 107/67; PULSE 66; RESP 17; TEMP 36.6; O2SAT 97
[2024-01-03 04:00] VITALS: BP 118/77; PULSE 84; RESP 18; TEMP 36.4; O2SAT 99
[2024-01-03] MEDS: piperacillin-tazobactam 3.375 GM in sodium chloride 0.9% (plus) 50 ML IV (05:12)
[2024-01-03] MEDS: levothyroxine 150 mcg Tablet 300 MCG PO (05:12)
[2024-01-03] MEDS: acetaminophen 325 mg Tablet 650 MG PO (05:12)
[2024-01-03 06:27] LABS: Basophils # 0.1 10^3/uL (0.0-0.1); Eosinophils # 0.7 10^3/uL (0.0-0.8); Eosinophils % 6.2 %; Hematocrit 33.2 % (37-53); Lymphocytes # 2.5 10^3/uL (0.8-4.8); Lymphocytes % 23.1 %; Mean Corpuscular HGB Conc 31.6 g/dL (30-55); Mean Corpuscular Hemoglobin 30.1 pg (27-33); Mean Corpuscular Volume 95.1 fl (82-101); Mean Platelet Volume 10.9 fL (7.4-10.4); Monocytes # 0.8 10^3/uL (0.2-0.9); Monocytes % 7.8 %; Neutrophils # 5.08 10^3/uL (1.8-7.7); Neutrophils % 47.6 %; Nucleated Red Blood Cells % 0 %; Platelet Count 382 10^3/cmm (157-399); Red Blood Count 3.49 10^6/uL (3.85-5.65); Red Cell Distribution Width 14.8 % (12.1-15.1); White Blood Count 10.67 10^3/uL (3.29-11.43)
[2024-01-03 06:38] LABS: Anion Gap 14.5 (5-19); Blood Urea Nitrogen 13 mg/dL (6-20); Calcium 8.5 mg/dL (8.5-10.5); Carbon Dioxide 27 mmol/L (22-29); Chloride 107 mmol/L (98-107); Creatinine Clr Calc Pharmacy 154.3401; Glomerular Filtration Rate 114.3 mL/min (90-130); Glucose 78 mg/dL (65-115); Osmolality Calculated 297 mOsm/kg (285-295); Phosphorus 3.8 mg/dL (2.5-4.5); Potassium 4.5 mmol/L (3.5-5.1); Sodium 144 mmol/L (136-145)
[2024-01-03 07:11] LABS: Slide Review Slide Review Perform
--- NOTE | 2024-01-03 08:08 | PM.DCS ---
Discharge Providers Date of Admission: 12/31/23 14:09 Date of Discharge: January 03, 2024 Attending Provider at Admission: Moose Fatima MD Attending Provider at Discharge: Moose Fatima MD Primary Care Provider: Jozef Brown MD Diagnoses at Discharge Discharge Diagnosis (1) Deep incisional surgical site infection: Status: Acute Reason for Visit Reason for Visit: low back pain/Stiches coming out Brief History: Is a 28-year-old male who presented with a surgical site infection from lower back soft tissue mass excision. Patient is doing well, his symptoms had significantly improved and he has more feeling around the area of the wound. Packing has been replaced on a daily basis on the dressing changes morning there is no evidence of purulent pockets there is minimal amount of fibrinous discharge at the base of the wound other than that the wound appears to be healing well there is still some cellulitis to the right of the wound but there is no evidence of any fluid collection at this level I did a bimanual palpation with 1 hand inside of the wound other outside of the skin and there is only induration. We had extensive discussion with the patient I have offered him to stay at least 24 hours more to ensure cellulitis completely resolves, patient at this time is not interested in staying in the hospital as he prefers to continue his treatment in an ambulatory fashion due to multiple social reasons. We have agreed to proceed with discharge with the compromise that if there is any kind of worsening either on his wound or the swelling around it he will immediately return to the hospital. Patient will be discharged on 2 different antibiotics based on sensitivities and in addition to these I will provide him with a referral to wound care, the wound is big enough that I think he will benefit from a wound VAC but he would not want to stay in the hospital to wait for it to be authorized by insurance. Physical Exam Back/Pelvis: OTHER: In the right lower back there is a surgical wound measuring about 12 cm, the base of the wound has some granulation tissue there is minimal amount of slough right at the base of the abscess cavity packing was replaced. There is minimal amount of cellulitis which is significantly improved from presentation to the right of the wound. Discharge Data Studies Completed and Pending Completed Studies During Hospitalization Category Date Time Status CT abdomen pelvis w con* [id number] Stat Cat Scan 12/31/23 13:23 Completed Pending at discharge Category Date Time Status Anaerobic Culture Routine Lab 12/31/23 21:37 Results Blood Culture Stat Lab 12/31/23 13:46 Results Wound Culture and Gram Stain Routine Lab 12/31/23 21:37 Results Radiology Impressions Abdomen/Pelvis CT 12/31/23 13:23 IMPRESSION: 1. Probable developing abscess along the superficial aspect of the right lumbar paraspinous musculature, as described above. 2. Additional findings, as above. Laboratory Results WBC 10.67 10^3/uL (3.29-11.43) 01/03/24 05:02 RBC 3.49 10^6/uL (3.85-5.65) L 01/03/24 05:02 Hgb 10.50 g/dL (11.27-16.99) L 01/03/24 05:02 Hct 33.2 % (37-53) L 01/03/24 05:02 MCV 95.1 fl (82-101) 01/03/24 05:02 MCH 30.1 pg (27-33) 01/03/24 05:02 MCHC 31.6 g/dL (30-55) 01/03/24 05:02 RDW 14.8 % (12.1-15.1) 01/03/24 05:02 Plt Count 382 10^3/cmm (157-399) 01/03/24 05:02 MPV 10.9 fL (7.4-10.4) H 01/03/24 05:02 Neut % (Auto) 47.6 % 01/03/24 05:02 Lymph % (Auto) 23.1 % 01/03/24 05:02 [place] % (Auto) 7.8 % 01/03/24 05:02 Eos % (Auto) 6.2 % 01/03/24 05:02 Baso % (Auto) 1.0 % 01/03/24 05:02 Neut # (Auto) 5.08 10^3/uL (1.8-7.7) 01/03/24 05:02 Lymph # (Auto) 2.5 10^3/uL (0.8-4.8) 01/03/24 05:02 [place] # (Auto) 0.8 10^3/uL (0.2-0.9) 01/03/24 05:02 Eos # (Auto) 0.7 10^3/uL (0.0-0.8) 01/03/24 05:02 Baso # (Auto) 0.1 10^3/uL (0.0-0.1) 01/03/24 05:02 Nucleated RBC % (auto) 0 % 01/03/24 05:02 Total Counted 100 (0-100) 01/02/24 06:18 Atypical Lymphs % 0.0 % (0-5) 01/02/24 06:18 Absolute Neutrophils 4.0 10^3/cmm (1.4-6.5) 01/02/24 06:18 Segmented Neutrophils 52 % 01/02/24 06:18 Abs Segm Neuts (Man) 4.0 10/cmm (1.6-7.1) 01/02/24 06:18 Band Neutrophils 0.0 % 01/02/24 06:18 Abs Band Neuts (Man) 0.0 10^3/cmm (0.0-1.2) 01/02/24 06:18 Absolute Lymphocytes 2.1 10^3/cmm (1.2-3.4) 01/02/24 06:18 Lymphocytes (Manual) 27 % 01/02/24 06:18 Monocytes (Manual) 10.0 % 01/02/24 06:18 Absolute Monocytes 0.8 10^3/cmm (0.1-0.6) H 01/02/24 06:18 Eosinophils (Manual) 7 % 01/02/24 06:18 Absolute Eosinophils 0.5 10^3/cmm (0.0-0.7) 01/02/24 06:18 Basophils (Manual) 0.0 % 01/02/24 06:18 Absolute Basophils 0.0 10^3/cmm (0.0-0.2) 01/02/24 06:18 Metamyelocytes 2.0 % 01/02/24 06:18 Myelocytes 2.0 % 01/02/24 06:18 Nucleated RBCs # 0.0 /100WBC 01/03/24 05:02 Platelet Estimate Normal (Normal) 01/02/24 06:18 Giant Platelets 1+ H 01/02/24 06:18 Sodium 144 mmol/L (136-145) 01/03/24 05:02 Potassium 4.5 mmol/L (3.5-5.1) 01/03/24 05:02 Chloride 107 mmol/L (98-107) 01/03/24 05:02 Carbon Dioxide 27 mmol/L (22-29) 01/03/24 05:02 Anion Gap 14.5 (5-19) 01/03/24 05:02 BUN 13 mg/dL (6-20) 01/03/24 05:02 Creatinine 0.8 mg/dL (0.7-1.2) 01/03/24 05:02 GFR Calculation 114.3 mL/min (90-130) 01/03/24 05:02 Glucose 78 mg/dL (65-115) 01/03/24 05:02 Estimat Average Glucose 91 01/01/24 05:03 Hemoglobin A1c 4.8 % (4.0-6.0) 01/01/24 05:03 Calculated Osmolality 297 mOsm/kg (285-295) H 01/03/24 05:02 Lactic Acid 0.7 mmol/L (0.5-2.2) 12/31/23 13:45 Calcium 8.5 mg/dL (8.5-10.5) 01/03/24 05:02 Phosphorus 3.8 mg/dL (2.5-4.5) 01/03/24 05:02 Magnesium 2.0 mg/dL (1.7-2.3) 01/03/24 05:02 Total Bilirubin 0.8 mg/dL (0.15-1.2) 12/31/23 13:45 AST 30 U/L (0-40) 12/31/23 13:45 ALT 52 U/L (0-41) H 12/31/23 13:45 Alkaline Phosphatase 100 U/L (40-130) 12/31/23 13:45 C-Reactive Protein 291.0 mg/L (0.0-4.9) H 12/31/23 13:45 Total Protein 8.0 g/dL (6.6-8.7) 12/31/23 13:45 Albumin 4.1 g/dL (3.5-5.2) 12/31/23 13:45 Globulin 3.9 g/dL (1.3-4.6) 12/31/23 13:45 Procalcitonin 0.32 ng/mL (0-0.5) 01/01/24 05:03 Urine Color Yellow (Yellow) 12/31/23 18:29 Urine Appearance Clear (CLEAR) 12/31/23 18:29 Urine pH 6.5 (5-7) 12/31/23 18:29 Ur Specific [place] 1.001 (1.005-1.030) L 12/31/23 18:29 Urine Protein Trace (Negative) 12/31/23 18:29 Urine Glucose (UA) Norm (Normal) 12/31/23 18:29 Urine Ketones 1+ (Negative) H 12/31/23 18:29 Urine Blood Neg (Negative) 12/31/23 18:29 Urine Nitrate Negative (Negative) 12/31/23 18:29 Urine Bilirubin Neg (Negative) 12/31/23 18: Urine Urobilinogen 1 mg/dL (Negative) H 12/31/23 18:29 Ur Leukocyte Esterase Negative (Negative) 12/31/23 18:29 Urine RBC 0-4 /hpf (0-2) H 12/31/23 18:29 Urine WBC None /hpf (0-5) 12/31/23 18:29 Ur Squamous Epith Cells None /hpf (0-5) 12/31/23 18:29 Amorphous Sediment Not Reportable 12/31/23 18:29 Urine Bacteria None /hpf (NONE) 12/31/23 18:29 Vancomycin Trough 9.5 ug/mL (10-15) L 01/02/24 09:20 Vitals Last Vital Signs Temp 97.5 F L 01/03/24 04:00 Pulse 84 01/03/24 04:00 Resp 18 01/03/24 04:00 BP 118/77 01/03/24 04:00 Pulse Ox 99 01/03/24 04:00 O2 Del Method Room Air 01/03/24 04:00 O2 Flow Rate 6 12/31/23 22:14 Discharge Plan Discharge Patient Disposition: Home Condition: Stable Prescriptions: New amoxicillin-pot clavulanate 875-125 mg tablet 1 tab PO BID Qty: 20 0RF clindamycin HCl 300 mg capsule 300 mg PO Q8H 10 Days Qty: 30 0RF oxycodone 5 mg tablet 5 mg PO Q8H PRN (Reason: pain during dressing change) 7 Days Qty: 14 0RF Continued meloxicam 15 mg tablet 15 mg PO DAILY Qty: 7 0RF docusate sodium [Colace] 100 mg capsule 100 mg PO BID Qty: 14 0RF levothyroxine 200 mcg tablet 200 mcg PO DAILY ClearLax 17 gram/dose powder See Rx Instructions .ROUTE .COMPLEX Rx Instructions: DISSOLVE 17grams in liquid AND drink DAILY for SEVEN DAYS. pantoprazole 40 mg tablet,delayed release (DR/EC) 40 mg PO BID 42 Days Qty: 84 1RF albuterol sulfate 90 mcg/actuation HFA aerosol inhaler 2 inh inhalation Q4H PRN (Reason: shortness of breath or wheezing) Qty: 8.5 0RF ondansetron 4 mg tablet,disintegrating 4 mg PO Q6H PRN (Reason: nausea and vomiting) Qty: 14 0RF Discontinued diclofenac sodium 75 mg tablet,delayed release (DR/EC) 75 mg PO Q12H PRN (Reason: pain) Qty: 30 1RF amoxicillin-pot clavulanate 875-125 mg tablet 1 tab PO BID 10 Days Qty: 20 0RF hydrocodone-acetaminophen 5-325 mg tablet 1 tab PO Q6H PRN (Reason: pain) Qty: 14 0RF Discharge Orders: Discharge Order (Routine); Ordered 01/03/24 Ordered By: Moose Fatima Referrals: Wound Care [Provider Group] (2-3 days, for wound evaluation and outpatient management (possible vac)) Moose Fatima MD [Physician] - (2 weeks) Jozef Brown MD [Primary Care Provider] - Discharge Diet: Advance as tolerated Discharge Activity: Resume usual activity Patient Instructions: Acute Wound Care (DC), Opioid Safety, Post Anesthesia Care Activity Restrictions/Additional Instructions: Return to the hospital if you have worsening redness around the wound, worsening swelling, purulent discharge from the wound. Please follow-up daily for dressing changes by nursing staff, please do not miss your appointment with the wound care clinic, they will offer you treatment plan for your wound that may include a wound VAC. Discharge Attestations Time Spent in Discharge Care*: less than 30 min Quality Metrics Clinical Quality Measures [ No reported AMI, CVA or VTE this stay] Coding Level of Care Code Acute Code for g Fwd Diagnoses Deep incisional surgical site infection T81.42XA
[2024-01-03 08:11] VITALS: BP 124/85; PULSE 54; RESP 18; TEMP 36.6; O2SAT 99
[2024-01-03 10:07] VITALS: BP 124/85; PULSE 54; RESP 18; TEMP 36.6; O2SAT 99
--- NOTE | 2024-01-03 10:08 | PC.NURSE ---
Vape taken from pyxis and given to pt prior to discharge.
== END 2024-01-03 09:30 | disposition home or self-care (01) | DRG 580 ==
LOC: ER 13:17 → MEDSURG 15:09
PROVIDERS: Admitting Provider Surgery; Emergency Provider Nurse Practitioner Family; PCP Family Medicine Adult Medicine; Visit Provider Surgery
PROC: 0JD70ZZ Extraction of Back Subcutaneous Tissue and Fascia, Open Approach (ICD-10-PCS; principal; 2023-12-31 17:25)
DX: L03.312 Cellulitis of back [any part except buttock and flank] (principal); T81.42XA Infection following a procedure, deep incisional surgical site, initial encounter; Y99.9 Unspecified external cause status; E03.9 Hypothyroidism, unspecified; Z72.0 Tobacco use; K21.9 Gastro-esophageal reflux disease without esophagitis
CPT/HCPCS: 36415; 74177; 80048; 80053; 80202; 81001; 83036; 83605; 83735; 84100; 84145; 85007; 85025; 86140; 87040; 87070; 87075; 87077; 87150; 87186; 87205; 96365; 96367; 96375; 99285; A6446; J0131; J1100; J1170; J1885; J2250; J2270; J2405; J2543; J2704; J3010; J3370; J3372; J3490; J7030; J7050; Q9967

== ENCOUNTER 2024-11-04 10:53 | Emergency (ER) | payer BC, MEDICAID, SELFPAY ==
--- NOTE | 2024-11-04 11:04 | XR_ITS ---
WS: [id number] Exam: XR foot RT min 3V* [id number] Date/Time of Exam: 11/04/2024 11:44 AM Reason For Exam: pain No fracture. The joints are preserved. No soft tissue foreign bodies. XR/XR foot RT min 3V* [id number] IMPRESSION: 1. Negative RIGHT foot.
--- NOTE | 2024-11-04 11:12 | W.ED.LOWEXIN ---
HPI - Extremity Injury (Lower) General: Chief Complaint: Extremity Problem,Nontraumatic Stated Complaint: R foot pain, discoloration, swelling Time Seen by Provider: 11/04/24 11:12 History of Present Illness: 29-year-old male presents emergency room with 2 reddened areas on the dorsum of his right foot he does not recall any particular injury or scrape or bite. Subjective low-grade fever no drainage from the areas. He has a third area on the proximal posterior calf it is not reddened or inflamed but does have an eschar present there is no drainage from any of the lesions mild swelling localized tenderness noted. Related Data Home Medications ?Medication ?Instructions ?Recorded ?Confirmed cetirizine 10 mg tablet 10 mg PO DAILY 11/04/24 11/04/24 fluticasone propionate 50 1 spray intranasal DAILY 11/04/24 11/04/24 mcg/actuation nasal spray,suspension levothyroxine 50 mcg tablet 50 mcg PO QAM 11/04/24 11/04/24 rosuvastatin 10 mg tablet 10 mg PO QPM 11/04/24 11/04/24 Previous Rx's ?Medication ?Instructions ?Recorded sulfamethoxazole 800 1 tab PO BID 7 days #14 tabs 11/04/24 mg-trimethoprim 160 mg tablet (Bactrim DS) Allergies Allergy/AdvReac Type Severity Reaction Status Date / Time No Known Allergies Allergy Verified 11/04/24 11:20 Review of Systems Const: Denies: fever(s) or chills Card: Denies: chest pain Resp: Denies: dyspnea GI: Denies: abdominal pain : Denies: dysuria, urinary frequency or urinary urgency Musc: Denies: neck pain or back pain Skin/Breast: Denies: rash PFSH ED PFSH: Medical History Urge incontinence of urine FH: Crohn's disease TMJ (temporomandibular joint syndrome) Bilateral lower extremity edema Hypothyroidism Cannabis dependence Depression Anxiety Asthma Chronic pain bilateral knees, lateral SIJ's and low back pain Bipolar 1 disorder Paranoid schizophrenia Has a hallucinations visual and hearing voices Hallucination Surgical History Status post excision of lipoma Status post laparoscopic cholecystectomy Family History Father No problems noted. Mother Lupus Acute Crohn's disease Acute pancreatitis Cancer Social History Smoking and tobacco/nicotine status: never used tobacco/nicotine Quit status (tobacco/nicotine): has tried quititng Second hand smoke exposure: No Alcohol intake: current Alcohol intake frequency: few times a month Alcohol type: other Substance/Drug Use: current Substance/Drug use frequency: daily Adopted: No Caregiver/support person: No Lives independently: Yes Household members: other Housing: Apartment Physical Exam Const: COMMON NORMALS: no acute distress GENERAL APPEARANCE: cooperative and comfortable ORIENTATION/CONSCIOUSNESS: Yes awake, Yes oriented to person, Yes oriented to place and Yes oriented to time HENMT: COMMON NORMALS: normocephalic, atraumatic and hearing grossly normal bilaterally HEAD & SCALP: normocephalic and atraumatic Resp: COMMON NORMALS: normal respiratory effort, No retractions and No use of accessory muscles Extremity: COMMON NORMALS: normal to inspection, capillary refill normal, no clubbing, cyanosis or edema, no calf tenderness and no pedal edema OTHER: Reddened areas on dorsum of right foot proximally anterior to the the ankle, the other proximal to the ankle joint as pictured above. They are tender to the touch. No significant induration approximately 2 and half to 3 inches in diameter no purulence no fluctuance no vesicles. Neuro: SENSORIUM/ORIENTATION: Yes oriented to person, Yes oriented to place and Yes oriented to time Skin: COMMON NORMALS: no rashes or lesions noted GENERAL SKIN EXAM: no rashes or lesions noted Course Vital Signs: Vital signs: Vital Signs Temperature 97.6 F 11/04/24 11:14 Pulse Rate 79 11/04/24 11:14 Blood Pressure 121/84 11/04/24 11:14 Pulse Oximetry 97 11/04/24 11:14 Oxygen Delivery Me thod Room Air 11/04/24 11:14 MDM - Extremity Injury (Lower) Medical Decision Making Mild cellulitis normal count. Will start him starting on Bactrim DS 1 p.o. twice daily. Set him up for follow-up with podiatry return if he has further problems. Medical Records I reviewed the patient's medical records. Lab Data I reviewed the patient's lab results. 11/04/24 12:46 11/04/24 12:46 Radiology Impressions Foot X-Ray 11/04/24 11:04 IMPRESSION: 1. Negative RIGHT foot. Laboratory Results WBC 9.49 10^3/uL (3.29-11.43) 11/04/24 12:46 RBC 4.43 10^6/uL (3.85-5.65) 11/04/24 12:46 Hgb 13.60 g/dL (11.27-16.99) 11/04/24 12:46 Hct 42.9 % (37-53) 11/04/24 12:46 MCV 96.8 fl (82-101) 11/04/24 12:46 MCH 30.7 pg (27-33) 11/04/24 12:46 MCHC 31.7 g/dL (30-55) 11/04/24 12:46 RDW 12.7 % (12.1-15.1) 11/04/24 12:46 Plt Count 186 10^3/cmm (157-399) 11/04/24 12:46 MPV 11.9 fL (7.4-10.4) H 11/04/24 12:46 Neut % (Auto) 70.0 % 11/04/24 12:46 Lymph % (Auto) 17.9 % 11/04/24 12:46 [place] % (Auto) 7.3 % 11/04/24 12:46 Eos % (Auto) 3.1 % 11/04/24 12:46 Baso % (Auto) 0.8 % 11/04/24 12:46 Neut # (Auto) 6.64 10^3/uL (1.8-7.7) 11/04/24 12:46 Lymph # (Auto) 1.7 10^3/uL (0.8-4.8) 11/04/24 12:46 [place] # (Auto) 0.7 10^3/uL (0.2-0.9) 11/04/24 12:46 Eos # (Auto) 0.3 10^3/uL (0.0-0.8) 11/04/24 12:46 Baso # (Auto) 0.1 10^3/uL (0.0-0.1) 11/04/24 12:46 Nucleated RBC % (auto) 0 % 11/04/24 12:46 Nucleated RBCs # 0.0 /100WBC 11/04/24 12:46 Sodium 141 mmol/L (136-145) 11/04/24 12:46 Potassium 4.6 mmol/L (3.5-5.1) 11/04/24 12:46 Chloride 102 mmol/L (98-107) 11/04/24 12:46 Carbon Dioxide 27 mmol/L (22-29) 11/04/24 12:46 Anion Gap 16.6 (5-19) 11/04/24 12:46 BUN 12 mg/dL (6-20) 11/04/24 12:46 Creatinine 1.1 mg/dL (0.7-1.2) 11/04/24 12:46 GFR Calculation 78.6 mL/min (90-130) L 11/04/24 12:46 Glucose 82 mg/dL (65-115) 11/04/24 12:46 Calculated Osmolality 291 mOsm/kg (285-295) 11/04/24 12:46 Lactic Acid 0.8 mmol/L (0.5-2.2) 11/04/24 12:46 Calcium 9.2 mg/dL (8.5-10.5) 11/04/24 12:46 Total Bilirubin 0.3 mg/dL (0.15-1.2) 11/04/24 12:46 AST 50 U/L (0-40) H 11/04/24 12:46 ALT 31 U/L (0-41) 11/04/24 12:46 Alkaline Phosphatase 59 U/L (40-130) 11/04/24 12:46 Total Protein 7.1 g/dL (6.6-8.7) 11/04/24 12:46 Albumin 4.3 g/dL (3.5-5.2) 11/04/24 12:46 Globulin 2.8 g/dL (1.3-4.6) 11/04/24 12:46 All radiology interpretation(s) finalized by discharge Discharge Plan Discharge Patient Disposition: Home Clinical Impression: Cellulitis and abscess of right leg Condition: Stable Prescriptions: New sulfamethoxazole-trimethoprim [Bactrim DS] 800-160 mg tablet 1 tab PO BID 7 Days Qty: 14 0RF No Action cetirizine 10 mg tablet 10 mg PO DAILY levothyroxine 50 mcg tablet 50 mcg PO QAM fluticasone propionate 50 mcg/actuation spray,suspension 1 spray intranasal DAILY rosuvastatin 10 mg tablet 10 mg PO QPM Discharge Orders: Discharge ED (Routine); Ordered 11/04/24 Ordered By: Domingo Morales Discharge Diet: Usual diet Discharge Activity: Increase activity as tolerated Patient Instructions: Opioid Safety, Pain Management Activity Restrictions/Additional Instructions: Thank you for choosing [facility] for your healthcare needs today. It is very important that you follow up as instructed or that you return to the Emergency Department should you have concerns or if your condition changes or worsens in any way. You were seen today with reddened inflamed areas on your right foot. X-rays and laboratory test do not show any significant abnormality recommend you start on oral antibiotics. We have made a follow-up appointment with you tomorrow November 05, 2024 at 1245 with the podiatry clinic Print Language: Pashto Coding Level of Care Code ED Casting Sorter for Janina Nunez
[2024-11-04 11:14] VITALS: BP 121/84; PULSE 79; TEMP 36.4; O2SAT 97
[2024-11-04 13:04] LABS: Basophils # 0.1 10^3/uL (0.0-0.1); Basophils % 0.8 %; Eosinophils # 0.3 10^3/uL (0.0-0.8); Eosinophils % 3.1 %; Hematocrit 42.9 % (37-53); Lymphocytes # 1.7 10^3/uL (0.8-4.8); Lymphocytes % 17.9 %; Mean Corpuscular HGB Conc 31.7 g/dL (30-55); Mean Corpuscular Hemoglobin 30.7 pg (27-33); Mean Corpuscular Volume 96.8 fl (82-101); Mean Platelet Volume 11.9 fL (7.4-10.4); Monocytes # 0.7 10^3/uL (0.2-0.9); Monocytes % 7.3 %; Neutrophils # 6.64 10^3/uL (1.8-7.7); Nucleated Red Blood Cells % 0 %; Platelet Count 186 10^3/cmm (157-399); Red Blood Count 4.43 10^6/uL (3.85-5.65); Red Cell Distribution Width 12.7 % (12.1-15.1); White Blood Count 9.49 10^3/uL (3.29-11.43)
--- NOTE | 2024-11-04 13:23 | DCPLANNER ---
scheduled podo follow up appointment prior to er d/c
[2024-11-04 13:28] LABS: Lactic Sepsis W/Reflex 0.8 mmol/L (0.5-2.2)
[2024-11-04 13:29] LABS: Alanine Aminotransferase 31 U/L (0-41); Albumin Level 4.3 g/dL (3.5-5.2); Alkaline Phosphatase 59 U/L (40-130); Anion Gap 16.6 (5-19); Aspartate Amino Transferase 50 U/L (0-40); Blood Urea Nitrogen 12 mg/dL (6-20); Calcium 9.2 mg/dL (8.5-10.5); Carbon Dioxide 27 mmol/L (22-29); Chloride 102 mmol/L (98-107); Creatinine Clr Calc Pharmacy 131.2856; Globulin 2.8 g/dL (1.3-4.6); Glomerular Filtration Rate 78.6 mL/min (90-130); Glucose 82 mg/dL (65-115); Osmolality Calculated 291 mOsm/kg (285-295); Potassium 4.6 mmol/L (3.5-5.1); Sodium 141 mmol/L (136-145); Total Bilirubin 0.3 mg/dL (0.15-1.2); Total Protein 7.1 g/dL (6.6-8.7)
[2024-11-04 14:28] VITALS: BP 127/81; PULSE 77; RESP 18; O2SAT 99
== END 2024-11-04 14:30 | disposition home or self-care (01) ==
PROVIDERS: Emergency Provider Family Medicine
DX: L03.115 Cellulitis of right lower limb (principal); L02.415 Cutaneous abscess of right lower limb
CPT/HCPCS: 36415; 73630; 80053; 83605; 85025; 87040; 99284

== ENCOUNTER 2024-11-13 17:07 | Emergency (ER) | payer BC, MEDICAID, SELFPAY ==
[2024-11-13 17:25] VITALS: BP 101/67; PULSE 86; RESP 16; TEMP 36.9; O2SAT 92
--- NOTE | 2024-11-13 17:46 | XRR_ITS ---
PROCEDURE INFORMATION: Exam: XR Right Toe(s) Exam date and time: 11/13/2024 5:48 PM Age: 29 years old Clinical indication: Injury or trauma; Fall; Blunt trauma; Toes; Right lesser toe(s); Injury details: PT complaint of injury to RT 2nd toe; Additional info: Injury, 2nd toe TECHNIQUE: Imaging protocol: Radiologic exam of the right toes. Views: Minimum 2 views. COMPARISON: CR XR foot RT min 3V* [id number] 11/04/2024 12:06 PM FINDINGS: Bones/joints: Normal. Soft tissues: Normal. XR/XR toe RT min 2V [id number] IMPRESSION: No acute findings.
--- NOTE | 2024-11-13 17:47 | W.ED.EXTPRO ---
HPI - Extremity Problem General: Chief complaint: Extremity Injury, Lower Stated complaint: Middle toe inj rt foot Time Seen by Provider: 11/13/24 17:33 Source: patient Mode of arrival: ambulatory Limitations: no limitations History of Present Illness: 29yo male presents with right middle toe pain that started just prior to arrival. Patient reports he was out hiking while wearing flip-flops, slipped, and heard a pop in his right second toe. States he is concerned of either dislocation or fracture. He is able to move the toe. He denies any other injury or concern at this time. Associated symptoms: Deny fever(s) Related Data Home Medications ?Medication ?Instructions ?Recorded ?Confirmed cetirizine 10 mg tablet 10 mg PO DAILY 11/04/24 11/11/24 fluticasone propionate 50 1 spray intranasal DAILY 11/04/24 11/11/24 mcg/actuation nasal spray,suspension levothyroxine 50 mcg tablet 50 mcg PO QAM 11/04/24 11/11/24 rosuvastatin 10 mg tablet 10 mg PO QPM 11/04/24 11/11/24 Previous Rx's ?Medication ?Instructions ?Recorded amoxicillin 875 mg-potassium 1 tab PO BID #14 tabs 11/05/24 clavulanate 125 mg tablet doxycycline hyclate 100 mg capsule 100 mg PO DAILY #14 caps 11/05/24 tramadol 50 mg tablet 50 mg PO Q6H PRN pain #28 tabs 11/05/24 triamcinolone acetonide 0.1 % 1 applic topical BID #30 grams 11/05/24 topical cream Allergies Allergy/AdvReac Type Severity Reaction Status Date / Time No Known Allergies Allergy Verified 11/11/24 11:16 Review of Systems Const: Denies: fever(s) or chills Musc: Reports: other (right 2nd toe pain) PFSH ED PFSH: Medical History Urge incontinence of urine FH: Crohn's disease TMJ (temporomandibular joint syndrome) Bilateral lower extremity edema Hypothyroidism Cannabis dependence Depression Anxiety Asthma Chronic pain bilateral knees, lateral SIJ's and low back pain Bipolar 1 disorder Paranoid schizophrenia Has a hallucinations visual and hearing voices Hallucination Surgical History Status post excision of lipoma Status post laparoscopic cholecystectomy Family History Father No problems noted. Mother Lupus Acute Crohn's disease Acute pancreatitis Cancer Social History Smoking and tobacco/nicotine status: never used tobacco/nicotine Quit status (tobacco/nicotine): has tried quititng Second hand smoke exposure: No Alcohol intake: current Alcohol intake frequency: few times a month Alcohol type: other Substance/Drug Use: current Substance/Drug use frequency: daily Adopted: No Caregiver/support person: No Lives independently: Yes Household members: other Housing: Apartment Physical Exam Const: COMMON NORMALS: no acute distress and alert GENERAL APPEARANCE: cooperative ORIENTATION/CONSCIOUSNESS: Yes awake OTHER: Patient is sitting upright in a vertical flow recliner in no acute distress. He is able to give history with no difficulty. He is interactive with exam appropriately. No family is at bedside HENMT: COMMON NORMALS: normocephalic and atraumatic HEAD & SCALP: normocephalic and atraumatic Neck/C-Spine: COMMON NORMALS: full ROM Chest: CHEST: Yes Symmetrical chest wall rise Resp: COMMON NORMALS: normal respiratory effort EFFORT & INSPECTION: Yes able to speak in complete sentences Extremity: COMMON NORMALS: full ROM and capillary refill normal NARRATIVE EXTREMITY EXAM: MAEW RIGHT LOWER EXTREMITY: Yes foot & digits (2nd toe) Right foot and digits: Yes palpation (TTP. No deformity noted) Neuro: COMMON NORMALS: moves all extremities SENSORIUM/ORIENTATION: Yes alert Psych: COMMON NORMALS: cooperative Course Vital Signs: Vital signs: Vital Signs Temperature 98.4 F 11/13/24 17:25 Pulse Rate 86 11/13/24 17:25 Respiratory Rate 16 11/13/24 17:25 Blood Pressure 101/67 11/13/24 17:25 Pulse Oximetry 92 11/13/24 17:25 Oxygen Delivery Me thod Room Air 11/13/24 17:25 MDM - Extremity (Nontraumatic) Medical Decision Making 29yo male presents with right middle toe pain that started just prior to arrival. Patient reports he was out hiking while wearing flip-flops, slipped, and heard a pop in his right second toe. States he is concerned of either dislocation or fracture. He is able to move the toe. He denies any other injury or concern at this time. Patient is nontoxic in appearance. Vital signs are stable. X-ray of the right toe with no fracture or acute bony abnormality noted, pending radiology review. Discussed findings with patient. Recommend acetaminophen/ibuprofen as needed for pain and comfort. Advised that he could bea tape his toe to help support the toe and provide comfort. Discussed footwear for hiking. Recommend he follow-up with primary care, call Monday with an update of symptoms and to discuss a recheck. Return precautions provided. Patient states understanding and has no further questions or concerns at this time. XR interpretation done by ED provider, pending radiology final review Discharge Plan Discharge Patient Disposition: Home Clinical Impression: Pain in toe of right foot Condition: Stable Prescriptions: No Action doxycycline hyclate 100 mg capsule 100 mg PO DAILY Qty: 14 0RF amoxicillin-pot clavulanate 875-125 mg tablet 1 tab PO BID Qty: 14 0RF triamcinolone acetonide 0.1 % cream 1 applic topical BID Qty: 30 0RF tramadol 50 mg tablet 50 mg PO Q6H PRN (Reason: pain) Qty: 28 0RF cetirizine 10 mg tablet 10 mg PO DAILY levothyroxine 50 mcg tablet 50 mcg PO QAM fluticasone propionate 50 mcg/actuation spray,suspension 1 spray intranasal DAILY rosuvastatin 10 mg tablet 10 mg PO QPM Discharge Orders: Discharge ED (Routine); Ordered 11/13/24 Ordered By: Benito Mart Discharge Diet: Usual diet Discharge Activity: Increase activity as tolerated Patient Instructions: Pain Management Activity Restrictions/Additional Instructions: No fracture or acute bony abnormality noted on the x-rays today You may bea tape your toe to its neighbor to help support it. Please ensure that you unwrap your toe at least twice daily Acetaminophen/ibuprofen as needed for pain and comfort Follow-up with primary care, call Monday with an update of symptoms and to discuss a recheck. Return to the emergency department if any rapid worsening symptoms, further injury, and as needed Print Language: New Zealander Coding Level of Care Code ED Wel[employer] for Janina Nunez
== END 2024-11-13 18:22 | disposition home or self-care (01) ==
PROVIDERS: Emergency Provider Nurse Practitioner
DX: M79.674 Pain in right toe(s) (principal)
CPT/HCPCS: 73660; 99283

== ENCOUNTER → 2024-12-16 09:52 | Outpatient (BNVA) | payer OTHER, SELFPAY | PROVIDERS: Visit Provider Psychiatry & Neurology Psychiatry | DX: Z79.899 Other long term (current) drug therapy (principal) | CPT/HCPCS: 80061; 83036 ==

== ENCOUNTER 2025-01-10 08:43 | Inpatient (IN) | payer BC, SELFPAY ==
[2024-12-18 10:59] VITALS: BP 140/84; BMI 52.4
[2025-01-10 08:54] VITALS: BP 148/90; PULSE 75; RESP 18; TEMP 36.8; O2SAT 96; BMI 49.9
--- NOTE | 2025-01-10 09:05 | W.ED.PSYCHS ---
Documented by User: MINDA Weldon 01/10/25 14:48 HPI - Psych General: Chief Complaint: Psychiatric Symptoms Stated Complaint: SI/MHE sent by Crisis center Time Seen by Provider: 01/10/25 08:48 Source: patient Mode of arrival: ambulatory Limitations: no limitations History of Present Illness: Patient is a 29-year-old male presents to ED today with depression and suicidal ideations. Patient states that he has a lot of stuff building up . He speaks about his homelessness and having to provide for his girlfriend. He states he recently found out that his father in [place] is terminally ill. Patient states he has a plan to jump out in front of traffic. [facility] and sent to the emergency department for psychiatric admission. MD complaint: suicidal ideation Onset (ago): week(s) Duration: constant History of same: Yes Relieving factors: none Exacerbating factors: none Context: significant life stressor Associated symptoms: Reports depression and suicidal ideation; Deny auditory hallucinations, visual hallucinations or homicidal ideation Treatments prior to arrival: none If self harm: admits thoughts of self harm and has plan Related Data Home Medications ?Medication ?Instructions ?Recorded ?Confirmed cetirizine 10 mg tablet 10 mg PO DAILY 11/04/24 01/10/25 fluticasone propionate 50 1 spray intranasal DAILY 11/04/24 01/10/25 mcg/actuation nasal spray,suspension rosuvastatin 10 mg tablet 10 mg PO QPM 11/04/24 01/10/25 albuterol sulfate 90 mcg/actuation 2 puff inhalation Q6H PRN 12/16/24 01/10/25 aerosol inhaler (Ventolin HFA) Shortness Of Breath levothyroxine 50 mcg tablet 100 mcg PO QAM 12/16/24 01/10/25 cyclobenzaprine 10 mg tablet 10 mg PO TID 01/10/25 01/10/25 tramadol 50 mg tablet 20 mg PO Q6H PRN Pain 01/10/25 01/10/25 Previous Rx's ?Medication ?Instructions ?Recorded doxycycline hyclate 100 mg capsule 100 mg PO DAILY #14 caps 11/05/24 triamcinolone acetonide 0.1 % 1 applic topical BID #30 grams 11/05/24 topical cream Allergies Allergy/AdvReac Type Severity Reaction Status Date / Time No Known Allergies Allergy Verified 12/16/24 09:19 Review of Systems Const: Denies: fever(s) or chills Card: Denies: chest pain, palpitations, lightheadedness or syncope Resp: Denies: dyspnea GI: Denies: abdominal pain, nausea, vomiting or diarrhea Skin/Breast: Denies: rash Neuro: Denies: headache(s) Psych: Reports: anxiety, depression, hopelessness and suicidal ideation; Denies: paranoia, visual hallucinations, auditory hallucinations or homicidal ideation PFSH ED PFSH: Medical History Psychiatric care Urge incontinence of urine FH: Crohn's disease TMJ (temporomandibular joint syndrome) Bilateral lower extremity edema Hypothyroidism Cannabis dependence Depression Anxiety Asthma Chronic pain bilateral knees, lateral SIJ's and low back pain Bipolar 1 disorder Paranoid schizophrenia Has a hallucinations visual and hearing voices Hallucination Surgical History Status post excision of lipoma Status post laparoscopic cholecystectomy Family History Father No problems noted. Mother Lupus Acute Crohn's disease Acute pancreatitis Cancer Social History Smoking and tobacco/nicotine status: current every day tobacco/nicotine user cigarettes and e-cigarettes E-Cigarette Details: e-cigarette and with nicotine E-cig/vape details: disposable that last 10 days Quit status (tobacco/nicotine): not considering quitting Second hand smoke exposure: Yes Alcohol intake: current Alcohol intake frequency: holidays/special occasions only Alcohol type: hard liquor Substance/Drug Use: current Substance/Drug use frequency: daily Other substance/drug use details: quit all hard drugs 8-9 years ago Adopted: No Caregiver/support person: No Lives independently: Yes Household members: significant other Housing: Homeless Marital status: Single Number of children: 0 Highest education level completed: GED or Equivalent service: No Current occupational status: unemployed Pets and animals: No Leisure activites: games and other Leisure activities details: writing Sexually active: Yes Do you think of yourself as: Pansexual Current gender identity: Male and Decline to Answer Shaila/Gnosticist: Dustin Special shaila needs: No Agree to transfusion: Yes Physical Exam Const: COMMON NORMALS: no acute distress, patient oriented x3, no limitations, alert and well nourished GENERAL APPEARANCE: cooperative NUTRITIONAL APPEARANCE: obese morbidly obese ORIENTATION/CONSCIOUSNESS: Yes awake, Yes oriented to person, Yes oriented to place and Yes oriented to time Resp: COMMON NORMALS: normal respiratory effort and clear to auscultation bilaterally AUSCULTATION: clear to auscultation bilaterally Cardio: COMMON NORMALS: regular rate and regular rhythm RATE: regular rate RHYTHM: regular rhythm Neuro: JASMINA COMA SCALE: document GCS findings Jasmina coma scale eye opening: Spontaneous Hensley coma scale verbal response: Orientated Hensley coma scale motor response: Obey commands Jasmina coma scale total score: 15 COMMON NORMALS: patient oriented x3 SENSORIUM/ORIENTATION: Yes alert, Yes oriented to person, Yes oriented to place and Yes oriented to time Psych: COMMON NORMALS: mental status grossly normal, Normal thought process present, cooperative, normal affect, speech normal, activity/motor behavior normal, denies hallucinations and denies homicidal ideation APPEARANCE: Yes grossly normal ATTITUDE: Yes calm ACTIVITY/MOTOR BEHAVIOR: Yes appropriate eye contact and No psychomotor agitation SPEECH: Yes normal speech MOOD & AFFECT: Yes euthymic mood THOUGHT PROCESS: Normal thought process present THOUGHT CONTENT: Yes Suicidality present MEMORY/COGNITION: Yes memory grossly intact and Yes cognition grossly intact INSIGHT: Good insight present (Psych) JUDGEMENT: Good judgement present (Psych) Course Consultations: Consultation #1: Dr. Moreira-accepts to NPU Vital Signs: Vital signs: Vital Signs Temperature 97.5 F L 01/10/25 20:27 Pulse Rate 97 01/10/25 20:27 Respiratory Rate 19 H 01/10/25 20:27 Blood Pressure 117/84 01/10/25 20:27 Pulse Oximetry 98 01/10/25 20:27 Oxygen Delivery Me thod Room Air 01/10/25 20:27 MDM - Psych Medical Decision Making Chart reviewed and patient discussed with midlevel. Agree with assessment and plan. Patient will be admitted to NPU to Dr. Moreira. Patient was placed on 96-hour hold. Medical Records I reviewed the patient's medical records. Lab Data I reviewed the patient's lab results. 01/10/25 17:33 01/10/25 17:33 Laboratory Results WBC 9.58 10^3/uL (3.29-11.43) 01/10/25 09:32 RBC 4.77 10^6/uL (3.85-5.65) 01/10/25 09:32 Hgb 14.50 g/dL (11.27-16.99) 01/10/25 09:32 Hct 44.6 % (37-53) 01/10/25 09:32 MCV 93.5 fl (82-101) 01/10/25 09:32 MCH 30.4 pg (27-33) 01/10/25 09:32 MCHC 32.5 g/dL (30-55) 01/10/25 09:32 RDW 13.3 % (12.1-15.1) 01/10/25 09:32 Plt Count 213 10^3/cmm (157-399) 01/10/25 09:32 MPV 11.4 fL (7.4-10.4) H 01/10/25 09:32 Neut % (Auto) 67.6 % 01/10/25 09:32 Lymph % (Auto) 22.8 % 01/10/25 09:32 Blount % (Auto) 5.8 % 01/10/25 09:32 Eos % (Auto) 2.7 % 01/10/25 09:32 Baso % (Auto) 0.6 % 01/10/25 09:32 Neut # (Auto) 6.47 10^3/uL (1.8-7.7) 01/10/25 09:32 Lymph # (Auto) 2.2 10^3/uL (0.8-4.8) 01/10/25 09:32 Blount # (Auto) 0.6 10^3/uL (0.2-0.9) 01/10/25 09:32 Eos # (Auto) 0.3 10^3/uL (0.0-0.8) 01/10/25 09:32 Baso # (Auto) 0.1 10^3/uL (0.0-0.1) 01/10/25 09:32 Nucleated RBC % (auto) 0 % 01/10/25 09:32 Nucleated RBCs # 0.0 /100WBC 01/10/25 09:32 Sodium 140 mmol/L (136-145) 01/10/25 09:32 Potassium 4.0 mmol/L (3.5-5.1) 01/10/25 09:32 Chloride 99 mmol/L (98-107) 01/10/25 09:32 Carbon Dioxide 30 mmol/L (22-29) H 01/10/25 09:32 Anion Gap 15.0 (5-19) 01/10/25 09:32 BUN 9 mg/dL (6-20) 01/10/25 09:32 Creatinine 1.2 mg/dL (0.7-1.2) 01/10/25 09:32 GFR Calculation 71.1 mL/min (90-130) L 01/10/25 09:32 Glucose 68 mg/dL (65-115) 01/10/25 09:32 Calculated Osmolality 287 mOsm/kg (285-295) 01/10/25 09:32 Calcium 9.4 mg/dL (8.5-10.5) 01/10/25 09:32 Total Bilirubin 0.4 mg/dL (0.15-1.2) 01/10/25 09:32 AST 44 U/L (0-40) H 01/10/25 09:32 ALT 25 U/L (0-41) 01/10/25 09:32 Alkaline Phosphatase 60 U/L (40-130) 01/10/25 09:32 Total Protein 7.3 g/dL (6.6-8.7) 01/10/25 09:32 Albumin 4.3 g/dL (3.5-5.2) 01/10/25 09:32 Globulin 3.0 g/dL (1.3-4.6) 01/10/25 09:32 Salicylates < 0.3 mg/dL (3-10) L 01/10/25 09:32 Urine Opiates Screen Negative ng/mL (Negative) 01/10/25 12:55 Acetaminophen < 5.0 ug/mL (10-30) L 01/10/25 09:32 Ur Barbiturates Screen Negative ng/mL (Negative) 01/10/25 12:55 Ur Phencyclidine Scrn Negative ng/mL (Negative) 01/10/25 12:55 Ur Amphetamines Screen Negative ng/mL (Negative) 01/10/25 12:55 U Benzodiazepines Scrn Negative ng/mL (Negative) 01/10/25 12:55 Urine Cocaine Screen Negative ng/mL (Negative) 01/10/25 12:55 U Marijuana (THC) Screen Positive ng/mL (Negative) H 01/10/25 12:55 Ethyl Alcohol < 10 mg/dL (0-10) 01/10/25 09:32 No radiology studies performed this visit Discharge Plan Discharge Patient Disposition: Admitted As Inpatient Admit Provider: Mina Moreira Clinical Impression: Suicidal ideation Condition: Stable Coding Level of Care Code ED Section Weaver for Chg Fwd Documented by User: Domingo Morales DO 01/11/25 06:07 HPI - Psych General: Chief Complaint: Psychiatric Symptoms Stated Complaint: SI/MHE sent by Crisis center Time Seen by Provider: 01/10/25 08:48 Related Data Home Medications ?Medication ?Instructions ?Recorded ?Confirmed cetirizine 10 mg tablet 10 mg PO DAILY 11/04/24 01/10/25 fluticasone propionate 50 1 spray intranasal DAILY 11/04/24 01/10/25 mcg/actuation nasal spray,suspension rosuvastatin 10 mg tablet 10 mg PO QPM 11/04/24 01/10/25 albuterol sulfate 90 mcg/actuation 2 puff inhalation Q6H PRN 12/16/24 01/10/25 aerosol inhaler (Ventolin HFA) Shortness Of Breath levothyroxine 50 mcg tablet 100 mcg PO QAM 12/16/24 01/10/25 cyclobenzaprine 10 mg tablet 10 mg PO TID 01/10/25 01/10/25 tramadol 50 mg tablet 20 mg PO Q6H PRN Pain 01/10/25 01/10/25 Previous Rx's ?Medication ?Instructions ?Recorded doxycycline hyclate 100 mg capsule 100 mg PO DAILY #14 caps 11/05/24 triamcinolone acetonide 0.1 % 1 applic topical BID #30 grams 11/05/24 topical cream Allergies Allergy/AdvReac Type Severity Reaction Status Date / Time No Known Allergies Allergy Verified 12/16/24 09:19 PFSH ED PFSH: Medical History Psychiatric care Urge incontinence of urine FH: Crohn's disease TMJ (temporomandibular joint syndrome) Bilateral lower extremity edema Hypothyroidism Cannabis dependence Depression Anxiety Asthma Chronic pain bilateral knees, lateral SIJ's and low back pain Bipolar 1 disorder Paranoid schizophrenia Has a hallucinations visual and hearing voices Hallucination Surgical History Status post excision of lipoma Status post laparoscopic cholecystectomy Family History Father No problems noted. Mother Lupus Acute Crohn's disease Acute pancreatitis Cancer Social History Smoking and tobacco/nicotine status: current every day tobacco/nicotine user cigarettes and e-cigarettes E-Cigarette Details: e-cigarette and with nicotine E-cig/vape details: disposable that last 10 days Quit status (tobacco/nicotine): not considering quitting Second hand smoke exposure: Yes Alcohol intake: current Alcohol intake frequency: holidays/special occasions only Alcohol type: hard liquor Substance/Drug Use: current Substance/Drug use frequency: daily Other substance/drug use details: quit all hard drugs 8-9 years ago Adopted: No Caregiver/support person: No Lives independently: Yes Household members: significant other Housing: Homeless Marital status: Single Number of children: 0 Highest education level completed: GED or Equivalent service: No Current occupational status: unemployed Pets and animals: No Leisure activites: games and other Leisure activities details: writing Sexually active: Yes Do you think of yourself as: Pansexual Current gender identity: Male and Decline to Answer Shaila/Gnosticist: Chan Special shaila needs: No Agree to transfusion: Yes Physical Exam Neuro: JASMINA COMA SCALE: document GCS findings Jasmina coma scale total score: 15 Course Vital Signs: Vital signs: Vital Signs Temperature 97.5 F L 01/10/25 20:27 Pulse Rate 97 01/10/25 20:27 Respiratory Rate 19 H 01/10/25 20:27 Blood Pressure 117/84 01/10/25 20:27 Pulse Oximetry 98 01/10/25 20:27 Oxygen Delivery Me thod Room Air 01/10/25 20:27 MDM - Psych Medical Decision Making Patient will be admitted to NPU to Dr. Moreira. Patient was placed on 96-hour hold. Chart reviewed and patient discussed with midlevel. Agree with assessment and plan. Lab Data 01/10/25 17:33 01/10/25 17:33 Laboratory Results WBC 9.58 10^3/uL (3.29-11.43) 01/10/25 09:32 RBC 4.77 10^6/uL (3.85-5.65) 01/10/25 09:32 Hgb 14.50 g/dL (11.27-16.99) 01/10/25 09:32 Hct 44.6 % (37-53) 01/10/25 09:32 MCV 93.5 fl (82-101) 01/10/25 09:32 MCH 30.4 pg (27-33) 01/10/25 09:32 MCHC 32.5 g/dL (30-55) 01/10/25 09:32 RDW 13.3 % (12.1-15.1) 01/10/25 09:32 Plt Count 213 10^3/cmm (157-399) 01/10/25 09:32 MPV 11.4 fL (7.4-10.4) H 01/10/25 09:32 Neut % (Auto) 67.6 % 01/10/25 09:32 Lymph % (Auto) 22.8 % 01/10/25 09:32 Blount % (Auto) 5.8 % 01/10/25 09:32 Eos % (Auto) 2.7 % 01/10/25 09:32 Baso % (Auto) 0.6 % 01/10/25 09:32 Neut # (Auto) 6.47 10^3/uL (1.8-7.7) 01/10/25 09:32 Lymph # (Auto) 2.2 10^3/uL (0.8-4.8) 01/10/25 09:32 Blount # (Auto) 0.6 10^3/uL (0.2-0.9) 01/10/25 09:32 Eos # (Auto) 0.3 10^3/uL (0.0-0.8) 01/10/25 09:32 Baso # (Auto) 0.1 10^3/uL (0.0-0.1) 01/10/25 09:32 Nucleated RBC % (auto) 0 % 01/10/25 09:32 Nucleated RBCs # 0.0 /100WBC 01/10/25 09:32 Sodium 140 mmol/L (136-145) 01/10/25 09:32 Potassium 4.0 mmol/L (3.5-5.1) 01/10/25 09:32 Chloride 99 mmol/L (98-107) 01/10/25 09:32 Carbon Dioxide 30 mmol/L (22-29) H 01/10/25 09:32 Anion Gap 15.0 (5-19) 01/10/25 09:32 BUN 9 mg/dL (6-20) 01/10/25 09:32 Creatinine 1.2 mg/dL (0.7-1.2) 01/10/25 09:32 GFR Calculation 71.1 mL/min (90-130) L 01/10/25 09:32 Glucose 68 mg/dL (65-115) 01/10/25 09:32 Calculated Osmolality 287 mOsm/kg (285-295) 01/10/25 09:32 Calcium 9.4 mg/dL (8.5-10.5) 01/10/25 09:32 Total Bilirubin 0.4 mg/dL (0.15-1.2) 01/10/25 09:32 AST 44 U/L (0-40) H 01/10/25 09:32 ALT 25 U/L (0-41) 01/10/25 09:32 Alkaline Phosphatase 60 U/L (40-130) 01/10/25 09:32 Total Protein 7.3 g/dL (6.6-8.7) 01/10/25 09:32 Albumin 4.3 g/dL (3.5-5.2) 01/10/25 09:32 Globulin 3.0 g/dL (1.3-4.6) 01/10/25 09:32 Salicylates < 0.3 mg/dL (3-10) L 01/10/25 09:32 Urine Opiates Screen Negative ng/mL (Negative) 01/10/25 12:55 Acetaminophen < 5.0 ug/mL (10-30) L 01/10/25 09:32 Ur Barbiturates Screen Negative ng/mL (Negative) 01/10/25 12:55 Ur Phencyclidine Scrn Negative ng/mL (Negative) 01/10/25 12:55 Ur Amphetamines Screen Negative ng/mL (Negative) 01/10/25 12:55 U Benzodiazepines Scrn Negative ng/mL (Negative) 01/10/25 12:55 Urine Cocaine Screen Negative ng/mL (Negative) 01/10/25 12:55 U Marijuana (THC) Screen Positive ng/mL (Negative) H 01/10/25 12:55 Ethyl Alcohol < 10 mg/dL (0-10) 01/10/25 09:32 Discharge Plan Discharge Patient Disposition: Admitted As Inpatient Admit Provider: Mina Moreira Clinical Impression: Suicidal ideation Condition: Stable Coding Level of Care Code ED Section Weaver for Janina Nunez
--- OUTSIDE RECORDS SUMMARY | 2025-01-10 09:06 | XMS_ITS | Clinical Summary ---
Author Organization [facility] Address [address] [place] [address] Care Team Providers Care Acidizer Name Role Phone Daisy Garner Primary Care Provi kimberly Source Comments PLEASE NOTE, if this patient is a minor, it may be UNLAWFUL to discuss sensitive information that is contained in these records (such as FAMILY PLANNING, MENTAL HEALTH or SUBSTANCE ABUSE) with the minor patient's parent or other person without the patient's specific authorization.[facility] Medications ALBUTEROL INHL Inhale into the lungs Active cetirizine (ZYRTEC) 10 mg tabletIndications: Seasonal allergies Take 1 Tablet by mouth once daily 30 Tablet 11 5 Active fluticasone (FLONASE) 50 mcg/actuation nasal sprayIndications:M ild intermittent asthma without complication (HHS-HCC),Seasonal allergies Place 1 [place] in both nostrils once daily 16 g 11 5 Active levothyroxine 50 mcg tabletIndications: Hypothyroidism, unspecified type Take 1 Tablet by mouth every morning before breakfast 30 Tablet 2 5 Active rosuvastatin (CRESTOR) 10 mg tabletIndications: Mixed hyperlipidemia Take 1 Tablet by mouth nightly at bedtime 30 Tablet 2 5 Active Active Problems Problem Noted Date Diagnosed Date Seasonal allergies 10/10/2024 Mild intermittent asthma without complication (H HS-HCC) 10/10/2024 Hypothyroidism 10/10/2024 Numbness and tingling in both hands 10/10/2024 Social History Tobacco Use Types Packs/Day Years Used Date Smoking Tobacco: Never Smokeless Tobacco: Never Alcohol Use Standard Drinks/Week Comments Not Currently 0 (1 standard drink = 0.6 oz pur e alcohol) Sex and Gender Information Value Date Recorded Sex Assigned at Male 08/12/2024 7:49 AM PST Legal Sex Male 7:49 AM PST Gender Identity Male 08/12/2024 7:49 AM PST Sexual Orientation Don't know 08/12/2024 7: 49 AM PST Last Filed Vital Signs Vital Sign Reading Time Taken Comments Blood Pressure 128/80 10/10/2024 11:56 AM CDT Pulse 87 10/10/2024 11:56 AM CDT Temperature 36.3 C (97.4 F) 10/10/2024 11:56 AM CDT Respiratory Rate - - Oxygen Saturation 98% 10/10/2024 11: 56 AM CDT Inhaled Oxygen Concentration - - Weight 142.2 kg (313 lb 9.6 oz) 025 11:56 AM CDT Height 167.6 cm (5' 6 ) 10/10/2024 11:5 6 AM CDT Body Mass Index 50.62 10/10/2024 11:56 AM CDT Plan of Treatment Health Maintenance Due Date Last Done Comments Anxiety Screening 1994 Imm-Hepatitis B (1 of 3 - 19+ 3-dose series) 4 Imm-Pneumococcal (1 of 2 - PCV) 2013 Tos-IUHHX-56 (1 - season) 2024 Depression Annual Screen 06/26/2024 Imm-Influenza (#1) 2025 Hypertension Screening (#1) 10/10/2025 Lipid Screening 10/10/2025 10/10/2024 TSH Monitoring 10/10/2025 10/10/2024 Tobacco Screening 10/10/2025 10/10/2024 Imm-DTaP/Tdap/Td (2 - Td or Tdap) 06/17/2033 023 Alcohol and Drug Screen Completed 10/10/2024 HIV Screening Completed 10/10/2024 Hepatitis C Screening Completed 10/10/2024 Procedures Procedure Name Priority Date/Time Associated Diagnosis Comments ASSAY OF THYROID STIMULATING HORMONE TSH Routine 10/10/2024 12:18 PM CDT Hypothyroidism, unspecified type LIPID PANEL Routine 10/10/2024 12:18 PM CDT Encounter for screening for cardiovascular disorders HIV AB, SCREEN Routine 10/10/2024 12:10 PM CDT Screening for viral disease HEPATITIS C VIRUS Routine 10/10/2024 12: 10 PM CDT Screening for viral disease from Last 3 Months or Most Recently Relevant to Health Maintenance Results * (ABNORMAL) ASSAY OF THYROID STIMULATING HORMONE TSH (10/10/2024 12:18 PM CDT) TSH >100.000(H) 0.450 - 4.500 uIU/mL [facility] Blood Blood / Unknown 10/10/2024 1 2:18 PM CDT 10/10/2024 1:02 PM CDT us Daisy Geremias-Marsland DO LAB - BLOOD DRAW Fi nal Result Performing Organization Address City/[facility]/ZIP Co de Phone Number [facility] [address] [place] [address], [place] [phone] * (ABNORMAL) LIPID PANEL (10/10/2024 12:18 PM CDT) Triglycerides 162(H) <149 mg/dL [facility] HDL, Direct 73(H) 39 - 61 mg/dL [facility] Calculated LDL 198(H) <99 [facility] VLDL 32 6 - 40 [facility] CHOL/dHDL RATIO 4 [facility] Cholesterol 303(H) 100 - 199 mg/dL [facility] Blood Blood / Unknown 10/10/2024 1 2:18 PM CDT 10/10/2024 1:02 PM CDT us [id number] Geremias-Shabbir DO LAB - BLOOD DRAW Fi nal Result Performing Organization Address City/[facility]/ZIP Co de Phone Number [facility] [address] [place] [address], [place] [phone] * HEPATITIS C VIRUS (10/10/2024 12:10 PM CDT) [facility] HCV Negative Negative [facility] Blood Blood / Unknown 10/10/2024 1 2:10 PM CDT 10/10/2024 12:18 PM CDT us WilfridoTrentprosperjyoti Geremias-Marsland DO LAB - BLOOD DRAW Fi nal Result [facility] [address] [place] [address], * HIV AB, SCREEN (10/10/2024 12:10 PM CDT) [facility] HIV Negative Negative [facility] Blood Blood / Unknown 10/10/2024 1 2:10 PM CDT 10/10/2024 12:18 PM CDT us WilfridoGogo Geremias-Marsland DO LAB - BLOOD DRAW Fi nal Result Performing Organization Address City/[facility]/ZIP Co de Phone Number [facility] [address] [place] [address], from Last 3 Months or Most Recently Relevant to Health Maintenance Insurance [facility] Care Teams Acidizer Relationship Specialty Start Date End Date Daisy Garner DO [address] [place] [address] PCP - General Family Medicine, Physician 10/08/24
[2025-01-10 09:38] LABS: Hematocrit 44.6 % (37-53); Hemoglobin 14.50 g/dL (11.27-16.99); Mean Corpuscular HGB Conc 32.5 g/dL (30-55); Mean Corpuscular Hemoglobin 30.4 pg (27-33); Mean Corpuscular Volume 93.5 fl (82-101); Nucleated Red Blood Cells % 0 %; Platelet Count 213 10^3/cmm (157-399); Red Blood Count 4.77 10^6/uL (3.85-5.65); White Blood Count 9.58 10^3/uL (3.29-11.43)
[2025-01-10 09:54] LABS: Alanine Aminotransferase 25 U/L (0-41); Albumin Level 4.3 g/dL (3.5-5.2); Alkaline Phosphatase 60 U/L (40-130); Anion Gap 15.0 (5-19); Aspartate Amino Transferase 44 U/L (0-40); Blood Urea Nitrogen 9 mg/dL (6-20); Calcium 9.4 mg/dL (8.5-10.5); Carbon Dioxide 30 mmol/L (22-29); Chloride 99 mmol/L (98-107); Creatinine Clr Calc Pharmacy 116.2781; Globulin 3.0 g/dL (1.3-4.6); Glucose 68 mg/dL (65-115); Osmolality Calculated 287 mOsm/kg (285-295); Potassium 4.0 mmol/L (3.5-5.1); Sodium 140 mmol/L (136-145); Total Protein 7.3 g/dL (6.6-8.7)
[2025-01-10 09:57] LABS: Acetaminophen < 5.0 ug/mL (10-30); Alcohol Level < 10 mg/dL (0-10); Salicylate < 0.3 mg/dL (3-10)
--- NOTE | 2025-01-10 10:00 | PC.PHAR ---
Med rec completed via pharmacies with last fill date, day supply, and where filled. Unknown when pt last took meds.
--- NOTE | 2025-01-10 10:07 | PC.NURSE ---
Involuntary 96 hour rights read and reviewed with patient. Leo from [employer] present during reading of rights. Copy of rights given to patient. Patient became upset with 96 hour hold and stated I am not staying her. I have to be with my girlfriend 16/01 or she will harm herself. My father is also dying. I will not be staying here i am leaving now. This nurse along with Leo attempted to de-escalate patient. This nurse also told patient that we will have to lock his cell phone up at this time. Patient refused to give up cell phone. Dustin from [employer] responded to room and was cooperative with him. He was able to lock patients phone up and patient is more agreeable at this time.
[2025-01-10 13:15] LABS: PCP Screen Urine Negative (Negative)
--- NOTE | 2025-01-10 16:26 | PC.NURSE ---
report called to NPU, no further questions. contacted security for transport
[2025-01-10 17:06] VITALS: BP 150/105; PULSE 64; RESP 17; TEMP 36.3; O2SAT 98
[2025-01-10 17:42] LABS: Hematocrit 46.9 % (37-53); Hemoglobin 15.10 g/dL (11.27-16.99); Mean Corpuscular HGB Conc 32.2 g/dL (30-55); Mean Corpuscular Hemoglobin 29.7 pg (27-33); Mean Corpuscular Volume 92.3 fl (82-101); Nucleated Red Blood Cells % 0 %; Platelet Count 212 10^3/cmm (157-399); Red Blood Count 5.08 10^6/uL (3.85-5.65); White Blood Count 10.32 10^3/uL (3.29-11.43)
[2025-01-10 18:02] LABS: Alanine Aminotransferase 24 U/L (0-41); Albumin Level 4.6 g/dL (3.5-5.2); Alkaline Phosphatase 65 U/L (40-130); Anion Gap 17.2 (5-19); Aspartate Amino Transferase 43 U/L (0-40); Blood Urea Nitrogen 9 mg/dL (6-20); Calcium 9.3 mg/dL (8.5-10.5); Carbon Dioxide 27 mmol/L (22-29); Chloride 102 mmol/L (98-107); Creatinine Clr Calc Pharmacy 139.5338; Globulin 3.0 g/dL (1.3-4.6); Glucose 81 mg/dL (65-115); Osmolality Calculated 292 mOsm/kg (285-295); Potassium 4.2 mmol/L (3.5-5.1); Sodium 142 mmol/L (136-145); Total Protein 7.6 g/dL (6.6-8.7)
[2025-01-10 18:08] LABS: Acetaminophen < 5.0 ug/mL (10-30); Salicylate < 0.3 mg/dL (3-10)
[2025-01-10 20:27] VITALS: BP 117/84; PULSE 97; RESP 19; TEMP 36.4; O2SAT 98
[2025-01-11 06:00] VITALS: BP 133/98; PULSE 84; RESP 17; TEMP 36.5; O2SAT 98
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
[2025-01-11 14:00] VITALS: BP 123/81; PULSE 53; RESP 16; TEMP 36.6; O2SAT 93
[2025-01-11 20:30] VITALS: BP 108/68; PULSE 77; RESP 18; TEMP 36.4; O2SAT 96
[2025-01-12 06:00] VITALS: BP 150/94; PULSE 94; RESP 17; TEMP 36.7; O2SAT 99
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
[2025-01-12 14:00] VITALS: BP 135/74; PULSE 74; RESP 16; TEMP 36.8; O2SAT 98
--- NOTE | 2025-01-12 17:12 | XRR_ITS ---
PROCEDURE INFORMATION: Exam: XR Left Foot Exam date and time: 01/12/2025 5:34 PM Age: 29 years old Clinical indication: Injury or trauma; Fall; Blunt trauma; Foot; Left; Additional info: Fall, pain across top of left foot prior to admission. TECHNIQUE: Imaging protocol: Radiologic exam of the left foot. Views: 3 or more views. COMPARISON: No relevant prior studies available. FINDINGS: Bones/joints: No acute fracture or subluxation. No periosteal reaction or callus formation. Soft tissues: Normal. XR/XR foot LT min 3V* [id number] IMPRESSION: No acute fracture or subluxation.
[2025-01-12 19:09] VITALS: BP 111/66; PULSE 68; RESP 18; TEMP 36.6; O2SAT 95
[2025-01-13 06:00] VITALS: BP 98/74; PULSE 122; RESP 20; TEMP 36.4; O2SAT 99
[2025-01-13 12:23] VITALS: BP 98/74; PULSE 122; RESP 20; TEMP 36.4; O2SAT 99
[2025-01-13 14:00] VITALS: BP 131/95; PULSE 83; RESP 16; TEMP 36.5; O2SAT 97
== END 2025-01-13 15:27 | disposition home or self-care (01) | DRG 885 ==
LOC: ER 14:48 → NP 16:31
PROVIDERS: Family Medicine; Admitting Provider Psychiatry & Neurology Psychiatry; Emergency Provider Physician Assistant; Visit Provider Psychiatry & Neurology Psychiatry
DX: F33.9 Major depressive disorder, recurrent, unspecified (principal); R45.851 Suicidal ideations; Z59.00 Homelessness unspecified; Z68.43 Body mass index [BMI] 50.0-59.9, adult; F12.20 Cannabis dependence, uncomplicated; F43.10 Post-traumatic stress disorder, unspecified; Z63.8 Other specified problems related to primary support group; F41.9 Anxiety disorder, unspecified; E66.01 Morbid (severe) obesity due to excess calories; F17.290 Nicotine dependence, other tobacco product, uncomplicated; E03.9 Hypothyroidism, unspecified; J45.909 Unspecified asthma, uncomplicated; G89.29 Other chronic pain; M25.562 Pain in left knee; M25.561 Pain in right knee; Z62.810 Personal history of physical and sexual abuse in childhood; Z62.811 Personal history of psychological abuse in childhood; Z81.8 Family history of other mental and behavioral disorders; G47.30 Sleep apnea, unspecified; E78.00 Pure hypercholesterolemia, unspecified; Z79.02 Long term (current) use of antithrombotics/antiplatelets
CPT/HCPCS: 36415; 73630; 80053; 80306; 80307; 85025; 97150; 97165; 99285; J9999